=== PATIENT | female | born 1970 | race Caucasian/White ===

== ENCOUNTER 2017-03-27 19:30 | Inpatient (IN) | payer OTHER ==
[~2017-03-27] VITALS: Ht 160 cm; Wt 59.0 kg
[2017-03-27] MEDS ORDERED: Morphine Sulfate 4mg/ml Inj IVP ONE (19:45)
[2017-03-27 21:02] VITALS: BP 125/61
[2017-03-27 21:02] LABS: APPEARANCE,URINE SLIGHTLY CLOUDY; KETONES,URINE NEGATIVE (NEGATIVE); LEUKOCYTE ESTERASE ,URINE 3+ (NEGATIVE); NITRITE,URINE NEGATIVE (NEGATIVE); PH,URINE 5 (4.5-8.0); PROTEIN,URINE NEGATIVE (NEGATIVE); UROBILINOGEN,URINE NORMAL MG/DL (0.0-1.0)
[2017-03-27 21:21] LABS: BACTERIA,URINE MANY /HPF; SQUAMOUS EPITHELIAL CELL,UR OCCASIONAL /LPF (NONE/OCC); WBC,URINE 20-30 /HPF (0 - 2)
[2017-03-27 21:52] LABS: BASOPHILS % (AUTO) 0.5 % (0.0-2.0); EOSINOPHILS % (AUTO) 0.2 % (0.0-3.0); LYMPHOCYTES % (AUTO) 13.1 % (20.0-45.0); MEAN CORPUSCULAR VOLUME 97 FL (80-99); MEAN PLATELET VOLUME 6.2 FL (6.5-10.1); MONOCYTES % (AUTO) 7.2 % (1.0-10.0); NEUTROPHILS % (AUTO) 79.1 % (45.0-75.0); PLATELET COUNT 230 K/UL (150-450); RED BLOOD COUNT 4.64 M/UL (4.20-5.40); RED CELL DISTRIBUTION WIDTH 11.2 % (11.6-14.8); WHITE BLOOD COUNT 14.5 K/UL (4.8-10.8)
[2017-03-27] MEDS ORDERED: Hydromorphone 0.5mg/0.5ml inj IVP ONE (22:15)
[2017-03-27 22:22] LABS: ALANINE AMINOTRANSFERASE 13 U/L (12-78); ALBUMIN/GLOBULIN RATIO 0.8 (1.0-2.7); ANION GAP 10 (5-15); ASPARTATE AMINO TRANSFERASE 12 U/L (15-37); CALCIUM 8.8 MG/DL (8.5-10.1); CARBON DIOXIDE 24 MMOL/L (21-32); CHLORIDE 102 MMOL/L (98-107); CREATININE 0.7 MG/DL (0.55-1.30); GLOMERULAR FILTRATION RATE > 60 mL/min (>60); LIPASE 64 U/L (73-393); POTASSIUM 3.3 MMOL/L (3.5-5.1); SODIUM 136 MMOL/L (136-145)
[2017-03-27 23:10] VITALS: BP 129/70
--- NOTE | 2017-03-27 23:42 | Emergency Room Report ---
History of Present Illness General Chief Complaint: Abdominal Pain Source: Patient, EMS Present Illness HPI 46-year-old female presents ED with lower abdominal pain with vomiting and diarrhea x2 days. Patient states she has history of diverticulitis. Initially noted blood in her stool but denies any blood at this time. States pain is sharp, 8/10, nonradiating. Denies fevers or chills. Denies chest pain shortness of breath. Denies recent antibiotic use. Patient states she feels weak. No aggravating relieving factors. Denies any other associated symptoms Allergies: Coded Allergies: No Known Allergies (Unverified , 03/27/17) Patient History Past Medical History: other - diverticulitis Past Surgical History: none Pertinent Family History: none Social History: Denies: smoking, alcohol use, drug use Last Menstrual Period: NA Now: No Immunizations: UTD Reviewed Nursing Documentation: PMH: Agreed, PSxH: Agreed Review of Systems All Other Systems: negative except mentioned in HPI Physical Exam Vital Signs Date Time Temp Pulse Resp B/P (MAP) Pulse Ox O2 Delivery O2 Flow Rate FiO2 03/27/17 19:25 98.4 107 18 132/84 99 Room Air Sp02 EP Interpretation: reviewed, normal General Appearance: no apparent distress, alert, GCS 15, non-toxic Head: normocephalic, atraumatic Eyes: bilateral eye normal inspection, bilateral eye PERRL ENT: hearing grossly normal, normal pharynx, no angioedema, normal voice Neck: full range of motion, supple/symm/no masses Respiratory: chest non-tender, lungs clear, normal breath sounds, speaking full sentences Cardiovascular #1: regular rate, rhythm, no edema Cardiovascular #2: 2+ carotid (R), 2+ carotid (L), 2+ radial (R), 2+ radial (L) , 2+ dorsalis pedis (R), 2+ dorsalis pedis (L) Gastrointestinal: normal bowel sounds, soft, non-distended, no guarding, no rebound, tenderness Rectal: deferred Genitourinary: normal inspection, no CVA tenderness Musculoskeletal: back normal, gait/station normal, normal range of motion, non- tender Neurologic: alert, oriented x3, responsive, motor strength/tone normal, sensory intact, speech normal Psychiatric: judgement/insight normal, memory normal, mood/affect normal, no suicidal/homicidal ideation Reflexes: 3+ bicep (R), 3+ bicep (L), 3+ tricep (R), 3+ tricep (L), 3+ knee (R) , 3+ knee (L) Skin: normal color, no rash, warm/dry, well hydrated Lymphatic: no adenopathy Medical Decision Making Diagnostic Impression: Primary Impression: Acute colitis Additional Impression: UTI (urinary tract infection) Qualified Codes: N39.0 - Urinary tract infection, site not specified ER Course Hospital Course 46-year-old female presents to ED with abd pain, diarrhea. 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 After initial history and physical I ordered labs, IV fluids, UA, pain medication and CT scan Labs - noted leukocytosis, Hb/Hct stable. electrolytes ok. UA shows + bacteria CT abdomen and pelvis - colitis patient feels weak, dehydrated. Abx given Case discussed with Dr. Friedman and he agreed to accept the patient to his service for further care and support I feel this is a highly complex case requiring extensive working including EKG/ Rhythm strip, Xray/CT/US, Blood/urine lab work, repeat exams while in ED, and administration of strong opiates/narcotics for pain control, admission to hospital or close patient follow up. Diagnosis - colitis, UTI Patient admitted to floor in serious condition Labs Test 03/27/17 20:35 03/27/17 21:25 Urine Color Pale yellow Urine Appearance Slightly cloudy Urine pH 5 (4.5-8.0) Urine Specific [place] 1.015 (1.005-1.035) Urine Protein Negative (NEGATIVE) Urine Glucose (UA) Negative (NEGATIVE) Urine Ketones Negative (NEGATIVE) Urine Occult Blood 3+ (NEGATIVE) Urine Nitrite Negative (NEGATIVE) Urine Bilirubin Negative (NEGATIVE) Urine Urobilinogen Normal MG/DL (0.0-1.0) Urine Leukocyte Esterase 3+ (NEGATIVE) Urine RBC 5-10 /HPF (0 - 2) Urine WBC 20-30 /HPF (0 - 2) Urine Squamous Epithelial Cells Occasional /LPF Urine Bacteria Many /HPF (NONE) Urine HCG, Qualitative Negative White Blood Count 14.5 K/UL (4.8-10.8) Red Blood Count 4.64 M/UL (4.20-5.40) Hemoglobin 13.9 G/DL (12.0-16.0) Hematocrit 44.8 % (37.0-47.0) Mean Corpuscular Volume 97 FL (80-99) Mean Corpuscular Hemoglobin 30.0 PG (27.0-31.0) Mean Corpuscular Hemoglobin Concent 31.0 G/DL (32.0-36.0) Red Cell Distribution Width 11.2 % (11.6-14.8) Platelet Count 230 K/UL (150-450) Mean Platelet Volume 6.2 FL (6.5-10.1) Neutrophils (%) (Auto) 79.1 % (45.0-75.0) Lymphocytes (%) (Auto) 13.1 % (20.0-45.0) Monocytes (%) (Auto) 7.2 % (1.0-10.0) Eosinophils (%) (Auto) 0.2 % (0.0-3.0) Basophils (%) (Auto) 0.5 % (0.0-2.0) Sodium Level 136 MMOL/L (136-145) Potassium Level 3.3 MMOL/L (3.5-5.1) Chloride Level 102 MMOL/L (98-107) Carbon Dioxide Level 24 MMOL/L (21-32) Anion Gap 10 (5-15) Blood Urea Nitrogen 8 mg/dL (7-18) Creatinine 0.7 MG/DL (0.55-1.30) Estimat Glomerular Filtration Rate > 60 mL/min (>60) Glucose Level 97 MG/DL (74-106) Calcium Level 8.8 MG/DL (8.5-10.1) Total Bilirubin 0.2 MG/DL (0.2-1.0) Aspartate Amino Transf (AST/SGOT) 12 U/L (15-37) Alanine Aminotransferase (ALT/SGPT) 13 U/L (12-78) Alkaline Phosphatase 61 U/L (46-116) Total Protein 7.0 G/DL (6.4-8.2) Albumin 3.1 G/DL (3.4-5.0) Globulin 3.9 g/dL Albumin/Globulin Ratio 0.8 (1.0-2.7) Lipase 64 U/L (73-393) CT/MRI/US Diagnostic Results CT/MRI/US Diagnostic Results : Imaging Test Ordered: CT A/P Impression colitis Last Vital Signs Date Time Temp Pulse Resp B/P (MAP) Pulse Ox O2 Delivery O2 Flow Rate FiO2 03/27/17 21:02 98.4 15 125/61 96 Room Air 03/27/17 19:25 107 Status: improved Disposition: ADMITTED INPATIENT Condition: Serious Referrals: NOT CHOSEN IPA/,REFERRING (PCP) CLEMENTINA MONREAL M.D. Mar 27, 2017 23:42
[2017-03-27] MEDS ORDERED: Miralax 17gm pkt ORAL PRN (23:45)
[2017-03-27] MEDS ORDERED: Mylanta II UD 30ml ORAL PRN (23:45)
[2017-03-27] MEDS ORDERED: Nitroglycerin Subl 0.4mg tab SL PRN (23:45)
[2017-03-28] MEDS ORDERED: Morphine Sulfate 2mg/ml Inj IVP ONE (02:00)
[2017-03-28] MEDS ORDERED: GABAPENTIN300 MG ORAL (02:51)
[2017-03-28] MEDS ORDERED: LYRICA75 M1 ORAL (02:51)
[2017-03-28] MEDS: D5 1/2NS 1,000 ML IV SCH ×3 (03:31→16:14)
[2017-03-28] MEDS: Morphine Sulfate 2mg/ml Inj IVP PRN ×5 (03:36→22:15)
[2017-03-28 04:00] VITALS: BP_SYST 113; BP_SYST 123; BP_DIAS 68; BP_DIAS 74
[2017-03-28] MEDS ORDERED: Zosyn 3.375gm inj ONE (05:19)
[2017-03-28] MEDS: Piperacillin/Tazobactam 3.375 GM in NS 110 ML IVPB SCH ×2 (05:50→14:29)
[2017-03-28 08:15] VITALS: BP 149/86
[2017-03-28 08:28] LABS: BASOPHILS % (AUTO) 0.4 % (0.0-2.0); EOSINOPHILS % (AUTO) 0.6 % (0.0-3.0); LYMPHOCYTES % (AUTO) 23.6 % (20.0-45.0); MEAN CORPUSCULAR HEMOGLOBIN 32.9 PG (27.0-31.0); MEAN CORPUSCULAR HGB CONC 34.5 G/DL (32.0-36.0); MEAN CORPUSCULAR VOLUME 95 FL (80-99); MEAN PLATELET VOLUME 7.3 FL (6.5-10.1); MONOCYTES % (AUTO) 10.7 % (1.0-10.0); NEUTROPHILS % (AUTO) 64.7 % (45.0-75.0); PLATELET COUNT 241 K/UL (150-450); RED BLOOD COUNT 4.33 M/UL (4.20-5.40); RED CELL DISTRIBUTION WIDTH 11.2 % (11.6-14.8); WHITE BLOOD COUNT 12.5 K/UL (4.8-10.8)
[2017-03-28] MEDS: Heparin 5000 units/ml inj SUBQ SCH ×2 (08:36→21:22)
[2017-03-28] MEDS: Pantoprazole Inj IVP SCH (08:36)
--- NOTE | 2017-03-28 09:06 | Diagnostic Imaging Report ---
Clinical Indication: Abdominal pain Technique: No oral contrast utilized, per emergency room physician request IV administration nonionic contrast. Venous phase spiral acquisition obtained through the abdomen and pelvis. Multiplanar reconstructions were generated. Total dose length product 550 mGycm. CTDIvol(s) 11 mGy. Dose reduction achieved using automated exposure control Comparison: None Findings: Some fluid is seen in the distal rectum as well as elsewhere within the colon. No evidence of diverticulosis or diverticulitis. The appendix is normal. Somewhat fluid-filled nondilated small bowel loops are seen within the pelvis. There is slight inflammation of the pericolonic fat surrounding the splenic flexure. The distal esophagus, stomach, duodenum are unremarkable. There is equivocal trace free fluid in the pelvis. No free intraperitoneal air is evident.. The gallbladder, bile ducts, liver, spleen, adrenals, kidneys are all unremarkable. Uterus is not visualized, suspect surgically absent. No pelvic mass or adenopathy. No retroperitoneal or mesenteric mass or adenopathy. Included lung bases demonstrate some dependent atelectasis on the left. The bones are unremarkable Impression: Some fluid in the distal small bowel and colon could indicate mild colitis/enteritis changes. Slight inflammation in the pericolonic fat adjacent to the splenic flexure possibly related to such. Equivocal trace free pelvic fluid, most likely physiologic No other acute abnormality Absent uterus, probably postsurgical Left basilar pulmonary atelectatic changes This agrees with the preliminary interpretation provided overnight by [facility] teleradiology service. The CT scanner at [facility] is accredited by the [employer] and the scans are performed using protocols designed to limit radiation exposure to as low as reasonably achievable to attain images of sufficient resolution adequate for diagnostic evaluation.
[2017-03-28 09:36] LABS: ALANINE AMINOTRANSFERASE 13 U/L (12-78); ALBUMIN/GLOBULIN RATIO 0.8 (1.0-2.7); AMYLASE 23 U/L (25-115); ANION GAP 8 (5-15); ASPARTATE AMINO TRANSFERASE 10 U/L (15-37); CALCIUM 8.3 MG/DL (8.5-10.1); CARBON DIOXIDE 27 MMOL/L (21-32); CHLORIDE 105 MMOL/L (98-107); CREATININE 0.8 MG/DL (0.55-1.30); GLOMERULAR FILTRATION RATE > 60 mL/min (>60); LIPASE 58 U/L (73-393); POTASSIUM 2.8 MMOL/L (3.5-5.1); SODIUM 140 MMOL/L (136-145); TOTAL PROTEIN 6.7 G/DL (6.4-8.2)
[2017-03-28 11:51] VITALS: BP 132/78
[2017-03-28] MEDS ORDERED: D5 1/2NS w/KCl 20mEq 1,000 ML IV SCH (14:00)
[2017-03-28] MEDS ORDERED: KCl 10% 40mEq/30ml liquid NG ONE (15:00)
[2017-03-28 15:28] VITALS: BP 118/81
--- NOTE | 2017-03-28 15:55 | History and Physical ---
History of Present Illness General Date patient seen: Mar 28, 2017 Reason for Hospitalization: Abdominal Pain Present Illness HPI 46-year-old female presented to ED with lower abdominal pain with vomiting and diarrhea x2 days. Patient states she has history of diverticulitis. Initially noted blood in her stool but denies any blood at this time. States pain is sharp, 8/10, nonradiating. Denies fevers or chills. Denies chest pain shortness of breath. Denies recent antibiotic use. Patient states she feels weak. No aggravating relieving factors. Denies any other associated symptoms Allergies: Coded Allergies: No Known Allergies (Unverified , 03/27/17) Medication History Scheduled Gabapentin* (Gabapentin*), 300 MG ORAL TID, (Reported) Pregabalin* (Lyrica*), 75 MG ORAL BID, (Reported) Patient History Healthcare decision maker Resuscitation status Full Code Advanced Directive on File Past Medical/Surgical History Past Medical/Surgical History: (1) Diverticulitis Review of Systems Constitutional: Reports: malaise, weakness All Other Systems: negative except mentioned in HPI Physical Exam General Appearance: WD/WN Lines, tubes and drains: peripheral, central line HEENT: normocephalic, atraumatic Neck: non-tender, normal alignment Respiratory/Chest: chest wall non-tender, lungs clear Cardiovascular/Chest: normal peripheral pulses, regularly irregular Abdomen: normal bowel sounds Genitourinary/Rectal: normal genital exam Extremities: normal range of motion Skin Exam: normal pigmentation Last 24 Hour Vital Signs Date Time Temp Pulse Resp B/P (MAP) Pulse Ox O2 Delivery O2 Flow Rate FiO2 03/28/17 15:28 97.9 88 19 118/81 95 Room Air 03/28/17 11:51 97.8 93 18 132/78 97 Room Air 03/28/17 08:15 99.0 97 20 149/86 97 Room Air 03/28/17 04:00 97.9 83 18 113/68 96 Room Air 03/28/17 03:00 90 17 116/61 97 03/27/17 23:10 98.1 92 14 129/70 96 Room Air 03/27/17 21:02 98.4 15 125/61 96 Room Air 03/27/17 19:25 98.4 107 18 132/84 99 Room Air Intake and Output 03/28/17 03/29/17 19:00 07:00 Intake Total 532.5 ml Balance 532.5 ml IV Total 532.5 ml # Bowel Movements 1 Laboratory Tests Test 03/27/17 20:35 03/27/17 21:25 03/28/17 06:45 Urine Color Pale yellow Urine Appearance Slightly cloudy Urine pH 5 (4.5-8.0) Urine Specific [place] 1.015 (1.005-1.035) Urine Protein Negative (NEGATIVE) Urine Glucose (UA) Negative (NEGATIVE) Urine Ketones Negative (NEGATIVE) Urine Occult Blood 3+ (NEGATIVE) H Urine Nitrite Negative (NEGATIVE) Urine Bilirubin Negative (NEGATIVE) Urine Urobilinogen Normal MG/DL (0.0-1.0) Urine Leukocyte Esterase 3+ (NEGATIVE) H Urine RBC 5-10 /HPF (0 - 2) H Urine WBC 20-30 /HPF (0 - 2) H Urine Squamous Epithelial Cells Occasional /LPF Urine Bacteria Many /HPF (NONE) H Urine HCG, Qualitative Negative White Blood Count 14.5 K/UL (4.8-10.8) H 12.5 K/UL (4.8-10.8) H Red Blood Count 4.64 M/UL (4.20-5.40) 4.33 M/UL (4.20-5.40) Hemoglobin 13.9 G/DL (12.0-16.0) 14.3 G/DL (12.0-16.0) Hematocrit 44.8 % (37.0-47.0) 41.3 % (37.0-47.0) Mean Corpuscular Volume 97 FL (80-99) 95 FL (80-99) Mean Corpuscular Hemoglobin 30.0 PG (27.0-31.0) 32.9 PG (27.0-31.0) H Mean Corpuscular Hemoglobin Concent 31.0 G/DL (32.0-36.0) L 34.5 G/DL (32.0-36.0) Red Cell Distribution Width 11.2 % (11.6-14.8) L 11.2 % (11.6-14.8) L Platelet Count 230 K/UL (150-450) 241 K/UL (150-450) Mean Platelet Volume 6.2 FL (6.5-10.1) L 7.3 FL (6.5-10.1) Neutrophils (%) (Auto) 79.1 % (45.0-75.0) H 64.7 % (45.0-75.0) Lymphocytes (%) (Auto) 13.1 % (20.0-45.0) L 23.6 % (20.0-45.0) Monocytes (%) (Auto) 7.2 % (1.0-10.0) 10.7 % (1.0-10.0) H Eosinophils (%) (Auto) 0.2 % (0.0-3.0) 0.6 % (0.0-3.0) Basophils (%) (Auto) 0.5 % (0.0-2.0) 0.4 % (0.0-2.0) Sodium Level 136 MMOL/L (136-145) 140 MMOL/L (136-145) Potassium Level 3.3 MMOL/L (3.5-5.1) L 2.8 MMOL/L (3.5-5.1) L Chloride Level 102 MMOL/L (98-107) 105 MMOL/L (98-107) Carbon Dioxide Level 24 MMOL/L (21-32) 27 MMOL/L (21-32) Anion Gap 10 (5-15) 8 (5-15) Blood Urea Nitrogen 8 mg/dL (7-18) 4 mg/dL (7-18) L Creatinine 0.7 MG/DL (0.55-1.30) 0.8 MG/DL (0.55-1.30) Estimat Glomerular Filtration Rate > 60 mL/min (>60) > 60 mL/min (>60) Glucose Level 97 MG/DL (74-106) 86 MG/DL (74-106) Calcium Level 8.8 MG/DL (8.5-10.1) 8.3 MG/DL (8.5-10.1) L Total Bilirubin 0.2 MG/DL (0.2-1.0) 0.2 MG/DL (0.2-1.0) Aspartate Amino Transf (AST/SGOT) 12 U/L (15-37) L 10 U/L (15-37) L Alanine Aminotransferase (ALT/SGPT) 13 U/L (12-78) 13 U/L (12-78) Alkaline Phosphatase 61 U/L (46-116) 56 U/L (46-116) Total Protein 7.0 G/DL (6.4-8.2) 6.7 G/DL (6.4-8.2) Albumin 3.1 G/DL (3.4-5.0) L 3.0 G/DL (3.4-5.0) L Globulin 3.9 g/dL 3.7 g/dL Albumin/Globulin Ratio 0.8 (1.0-2.7) L 0.8 (1.0-2.7) L Lipase 64 U/L (73-393) L 58 U/L (73-393) L Activated Partial Thromboplast Time 28 SEC (23-33) Amylase Level 23 U/L (25-115) L Height (Feet): 5 Height (Inches): 3.00 Weight (Pounds): 130 Medications Current Medications Medications (Trade) Dose Ordered Sig/Kin Route PRN Reason Start Time Stop Time Status Last Admin Dose Admin Acetaminophen (Tylenol) 650 mg Q4H PRN ORAL fever 03/27/17 23:45 04/26/17 23:44 Al Hydroxide/Mg Hydroxide (Mylanta II) 30 ml Q6H PRN ORAL dyspepsia 03/27/17 23:45 04/26/17 23:44 Dextrose (Dextrose 50%) STAT PRN IV Hypoglycemia 03/27/17 23:45 04/26/17 23:44 Dextrose/ Electrolytes 1,000 ml @ 75 mls/hr [id number] IV 03/28/17 14:00 04/27/17 13:59 Diphenhydramine HCl (Benadryl) 25 mg Q6H PRN ORAL Itching/Pruritis 03/27/17 23:45 04/26/17 23:44 Heparin Sodium (Porcine) (Heparin 5000 units/ml) 5,000 units EVERY 12 HOURS SUBQ 03/28/17 09:00 04/27/17 08:59 Morphine Sulfate (Morphine Sulfate) 2 mg EVERY 4 HOURS PRN IVP severe Pain (Pain Scale 7-10) 03/27/17 23:45 04/03/17 23:44 03/28/17 14:07 Nitroglycerin (Ntg) 0.4 mg Q5M X 3 DOSES PRN SL Prn Chest Pain 03/27/17 23:45 04/26/17 23:44 Ondansetron HCl (Zofran) 4 mg Q6H PRN IVP Nausea & Vomiting 03/27/17 23:45 04/26/17 23:44 03/28/17 12:15 Pantoprazole (Protonix) 40 mg DAILY IVP 03/28/17 09:00 04/27/17 08:59 03/28/17 08:36 Piperacillin Sod/ Tazobactam Sod 3.375 gm/Sodium Chloride 110 ml @ 27.5 mls/hr EVERY 8 HOURS IVPB 03/28/17 06:00 04/04/17 05:59 03/28/17 14:29 Polyethylene Glycol (Miralax) 17 gm HSPRN PRN ORAL Constipation 03/27/17 23:45 04/26/17 23:44 Temazepam (Restoril) 15 mg HSPRN PRN ORAL Insomnia 03/27/17 23:45 04/03/17 23:44 03/28/17 03:34 Assessment/Plan Problem List: (1) UTI (urinary tract infection) ICD Codes: N39.0 - Urinary tract infection, site not specified SNOMED: 84345069 (2) Acute colitis ICD Codes: K52.9 - Noninfective gastroenteritis and colitis, unspecified SNOMED: 259183304 (3) Diverticulitis ICD Codes: K57.92 - Diverticulitis of intestine, part unspecified, without perforation or abscess without bleeding SNOMED: 731449218 Assessment/Plan NPO IV hydration GI/ Id evaluation f/u electrolytes IV fluids symptoamtic treatment JUSTIN PIMENTEL Mar 28, 2017 15:55
--- NOTE | 2017-03-28 15:59 | Consultation ---
History of Present Illness General Date patient seen: Mar 28, 2017 Chief Complaint: Abdominal Pain Reason for Consultation: abdominal pain x 3 days Present Illness HPI 46F presented with abdominal pain x 3 days. as per patient, she was doing okay until she noted some cramping lower abdominal pain 3 days ago. pain persistent. described as cramping pain that feels like "cement drying in her belly." dry heaves but no emesis. no fever or chills. has not had prior episode. is having diarrhea with some blood in stool. good urine out put. recently on 1 week course of steroids which completed day pain started. Allergies: Coded Allergies: No Known Allergies (Unverified , 03/27/17) Medication History Scheduled Gabapentin* (Gabapentin*), 300 MG ORAL TID, (Reported) Pregabalin* (Lyrica*), 75 MG ORAL BID, (Reported) Patient History History Provided By: Patient Healthcare decision maker Resuscitation status Full Code Advanced Directive on File Past Medical/Surgical History Past Medical/Surgical History: (1) UTI (urinary tract infection) (2) Diverticulitis (3) Acute colitis Review of Systems All Other Systems: negative except mentioned in HPI Physical Exam General Appearance: no apparent distress Lines, tubes and drains: peripheral HEENT: mucous membranes moist, PERRL Neck: normal alignment, normal inspection Respiratory/Chest: lungs clear, normal breath sounds Cardiovascular/Chest: normal peripheral pulses Abdomen: normal bowel sounds, non tender, soft, no organomegaly, no mass Extremities: normal range of motion Skin Exam: normal pigmentation Neurologic: alert, oriented x 3 Last 24 Hour Vital Signs Date Time Temp Pulse Resp B/P (MAP) Pulse Ox O2 Delivery O2 Flow Rate FiO2 03/28/17 15:28 97.9 88 19 118/81 95 Room Air 03/28/17 11:51 97.8 93 18 132/78 97 Room Air 03/28/17 08:15 99.0 97 20 149/86 97 Room Air 03/28/17 04:00 97.9 83 18 113/68 96 Room Air 03/28/17 03:00 90 17 116/61 97 03/27/17 23:10 98.1 92 14 129/70 96 Room Air 03/27/17 21:02 98.4 15 125/61 96 Room Air 03/27/17 19:25 98.4 107 18 132/84 99 Room Air Intake and Output 03/28/17 03/29/17 19:00 07:00 Intake Total 532.5 ml Balance 532.5 ml IV Total 532.5 ml # Bowel Movements 1 Laboratory Tests Test 03/27/17 20:35 03/27/17 21:25 03/28/17 06:45 Urine Color Pale yellow Urine Appearance Slightly cloudy Urine pH 5 (4.5-8.0) Urine Specific [place] 1.015 (1.005-1.035) Urine Protein Negative (NEGATIVE) Urine Glucose (UA) Negative (NEGATIVE) Urine Ketones Negative (NEGATIVE) Urine Occult Blood 3+ (NEGATIVE) H Urine Nitrite Negative (NEGATIVE) Urine Bilirubin Negative (NEGATIVE) Urine Urobilinogen Normal MG/DL (0.0-1.0) Urine Leukocyte Esterase 3+ (NEGATIVE) H Urine RBC 5-10 /HPF (0 - 2) H Urine WBC 20-30 /HPF (0 - 2) H Urine Squamous Epithelial Cells Occasional /LPF Urine Bacteria Many /HPF (NONE) H Urine HCG, Qualitative Negative White Blood Count 14.5 K/UL (4.8-10.8) H 12.5 K/UL (4.8-10.8) H Red Blood Count 4.64 M/UL (4.20-5.40) 4.33 M/UL (4.20-5.40) Hemoglobin 13.9 G/DL (12.0-16.0) 14.3 G/DL (12.0-16.0) Hematocrit 44.8 % (37.0-47.0) 41.3 % (37.0-47.0) Mean Corpuscular Volume 97 FL (80-99) 95 FL (80-99) Mean Corpuscular Hemoglobin 30.0 PG (27.0-31.0) 32.9 PG (27.0-31.0) H Mean Corpuscular Hemoglobin Concent 31.0 G/DL (32.0-36.0) L 34.5 G/DL (32.0-36.0) Red Cell Distribution Width 11.2 % (11.6-14.8) L 11.2 % (11.6-14.8) L Platelet Count 230 K/UL (150-450) 241 K/UL (150-450) Mean Platelet Volume 6.2 FL (6.5-10.1) L 7.3 FL (6.5-10.1) Neutrophils (%) (Auto) 79.1 % (45.0-75.0) H 64.7 % (45.0-75.0) Lymphocytes (%) (Auto) 13.1 % (20.0-45.0) L 23.6 % (20.0-45.0) Monocytes (%) (Auto) 7.2 % (1.0-10.0) 10.7 % (1.0-10.0) H Eosinophils (%) (Auto) 0.2 % (0.0-3.0) 0.6 % (0.0-3.0) Basophils (%) (Auto) 0.5 % (0.0-2.0) 0.4 % (0.0-2.0) Sodium Level 136 MMOL/L (136-145) 140 MMOL/L (136-145) Potassium Level 3.3 MMOL/L (3.5-5.1) L 2.8 MMOL/L (3.5-5.1) L Chloride Level 102 MMOL/L (98-107) 105 MMOL/L (98-107) Carbon Dioxide Level 24 MMOL/L (21-32) 27 MMOL/L (21-32) Anion Gap 10 (5-15) 8 (5-15) Blood Urea Nitrogen 8 mg/dL (7-18) 4 mg/dL (7-18) L Creatinine 0.7 MG/DL (0.55-1.30) 0.8 MG/DL (0.55-1.30) Estimat Glomerular Filtration Rate > 60 mL/min (>60) > 60 mL/min (>60) Glucose Level 97 MG/DL (74-106) 86 MG/DL (74-106) Calcium Level 8.8 MG/DL (8.5-10.1) 8.3 MG/DL (8.5-10.1) L Total Bilirubin 0.2 MG/DL (0.2-1.0) 0.2 MG/DL (0.2-1.0) Aspartate Amino Transf (AST/SGOT) 12 U/L (15-37) L 10 U/L (15-37) L Alanine Aminotransferase (ALT/SGPT) 13 U/L (12-78) 13 U/L (12-78) Alkaline Phosphatase 61 U/L (46-116) 56 U/L (46-116) Total Protein 7.0 G/DL (6.4-8.2) 6.7 G/DL (6.4-8.2) Albumin 3.1 G/DL (3.4-5.0) L 3.0 G/DL (3.4-5.0) L Globulin 3.9 g/dL 3.7 g/dL Albumin/Globulin Ratio 0.8 (1.0-2.7) L 0.8 (1.0-2.7) L Lipase 64 U/L (73-393) L 58 U/L (73-393) L Activated Partial Thromboplast Time 28 SEC (23-33) Amylase Level 23 U/L (25-115) L Height (Feet): 5 Height (Inches): 3.00 Weight (Pounds): 130 Medications Current Medications Medications (Trade) Dose Ordered Sig/Kin Route PRN Reason Start Time Stop Time Status Last Admin Dose Admin Acetaminophen (Tylenol) 650 mg Q4H PRN ORAL fever 03/27/17 23:45 04/26/17 23:44 Al Hydroxide/Mg Hydroxide (Mylanta II) 30 ml Q6H PRN ORAL dyspepsia 03/27/17 23:45 04/26/17 23:44 Dextrose (Dextrose 50%) STAT PRN IV Hypoglycemia 03/27/17 23:45 04/26/17 23:44 Dextrose/ Electrolytes 1,000 ml @ 75 mls/hr [id number] IV 03/28/17 14:00 04/27/17 13:59 Diphenhydramine HCl (Benadryl) 25 mg Q6H PRN ORAL Itching/Pruritis 03/27/17 23:45 04/26/17 23:44 Heparin Sodium (Porcine) (Heparin 5000 units/ml) 5,000 units EVERY 12 HOURS SUBQ 03/28/17 09:00 04/27/17 08:59 Morphine Sulfate (Morphine Sulfate) 2 mg EVERY 4 HOURS PRN IVP severe Pain (Pain Scale 7-10) 03/27/17 23:45 04/03/17 23:44 03/28/17 14:07 Nitroglycerin (Ntg) 0.4 mg Q5M X 3 DOSES PRN SL Prn Chest Pain 03/27/17 23:45 04/26/17 23:44 Ondansetron HCl (Zofran) 4 mg Q6H PRN IVP Nausea & Vomiting 03/27/17 23:45 04/26/17 23:44 03/28/17 12:15 Pantoprazole (Protonix) 40 mg DAILY IVP 03/28/17 09:00 04/27/17 08:59 03/28/17 08:36 Piperacillin Sod/ Tazobactam Sod 3.375 gm/Sodium Chloride 110 ml @ 27.5 mls/hr EVERY 8 HOURS IVPB 03/28/17 06:00 04/04/17 05:59 03/28/17 14:29 Polyethylene Glycol (Miralax) 17 gm HSPRN PRN ORAL Constipation 03/27/17 23:45 04/26/17 23:44 Temazepam (Restoril) 15 mg HSPRN PRN ORAL Insomnia 03/27/17 23:45 04/03/17 23:44 03/28/17 03:34 Assessment/Plan Problem List: (1) Acute colitis Assessment & Plan: 46F with abdominal pain x 3 days. Afebrile, HD stable, leukocytosis on admission which is improved. Exam with minimal tenderness and stable. CT reviewed and looks like enteritis. -bowel rest -Abx -will monitor exam ICD Codes: K52.9 - Noninfective gastroenteritis and colitis, unspecified SNOMED: [id number] Status: stable Clemente Contreras Mar 28, 2017 15:59
--- NOTE | 2017-03-28 16:31 | GI Initial Consult Note ---
History of Present Illness General Date patient seen: Mar 28, 2017 Time patient seen: 16:27 Reason for Hospitalization: Abdominal Pain Referring physician: JUSTIN MONTANO Reason for Consultation: abdominal pain x 3 days Present Illness HPI 46-year-old female presents ED with lower abdominal pain with vomiting and diarrhea x2 days. Patient states she has history of diverticulitis. Initially noted blood in her stool but denies any blood at this time. States pain is sharp, 8/10, nonradiating. Denies fevers or chills. Denies chest pain shortness of breath. Denies recent antibiotic use. Patient states she feels weak. No aggravating relieving factors. Denies any other associated symptoms. GI consulted for enteritis. HPI as noted above. Pt seen on floor, awake A& OxNAD with no active s/sx of N/V/D. Presents today with enteritis as shown on CT, leukocytosis, and electrolyte imbalance. Home Meds Reported Medications Gabapentin* (GABAPENTIN*) 300 Mg Capsule, 300 MG ORAL TID, CAP 03/28/17 Pregabalin* (LYRICA*) 75 Mg Capsule, 75 MG ORAL BID, CAP 03/28/17 Med list reviewed/reconciled: Yes Allergies: Coded Allergies: No Known Allergies (Unverified , 03/27/17) Patient History PMH Narrative Past Medical History: other - diverticulitis Past Surgical History: none Pertinent Family History: none Social History: Denies: smoking, alcohol use, drug use Last Menstrual Period: NA Now: No Immunizations: UTD Reviewed Nursing Documentation: PMH: Agreed, PSxH: Agreed Review of Systems All Other Systems: negative except mentioned in HPI Physical Exam Vital Signs Date Time Temp Pulse Resp B/P (MAP) Pulse Ox O2 Delivery O2 Flow Rate FiO2 03/27/17 19:25 98.4 107 18 132/84 99 Room Air Sp02 EP Interpretation: reviewed Labs Laboratory Tests Test 03/27/17 20:35 03/27/17 21:25 03/28/17 06:45 Urine Color Pale yellow Urine Appearance Slightly cloudy Urine pH 5 (4.5-8.0) Urine Specific [place] 1.015 (1.005-1.035) Urine Protein Negative (NEGATIVE) Urine Glucose (UA) Negative (NEGATIVE) Urine Ketones Negative (NEGATIVE) Urine Occult Blood 3+ (NEGATIVE) H Urine Nitrite Negative (NEGATIVE) Urine Bilirubin Negative (NEGATIVE) Urine Urobilinogen Normal MG/DL (0.0-1.0) Urine Leukocyte Esterase 3+ (NEGATIVE) H Urine RBC 5-10 /HPF (0 - 2) H Urine WBC 20-30 /HPF (0 - 2) H Urine Squamous Epithelial Cells Occasional /LPF Urine Bacteria Many /HPF (NONE) H Urine HCG, Qualitative Negative White Blood Count 14.5 K/UL (4.8-10.8) H 12.5 K/UL (4.8-10.8) H Red Blood Count 4.64 M/UL (4.20-5.40) 4.33 M/UL (4.20-5.40) Hemoglobin 13.9 G/DL (12.0-16.0) 14.3 G/DL (12.0-16.0) Hematocrit 44.8 % (37.0-47.0) 41.3 % (37.0-47.0) Mean Corpuscular Volume 97 FL (80-99) 95 FL (80-99) Mean Corpuscular Hemoglobin 30.0 PG (27.0-31.0) 32.9 PG (27.0-31.0) H Mean Corpuscular Hemoglobin Concent 31.0 G/DL (32.0-36.0) L 34.5 G/DL (32.0-36.0) Red Cell Distribution Width 11.2 % (11.6-14.8) L 11.2 % (11.6-14.8) L Platelet Count 230 K/UL (150-450) 241 K/UL (150-450) Mean Platelet Volume 6.2 FL (6.5-10.1) L 7.3 FL (6.5-10.1) Neutrophils (%) (Auto) 79.1 % (45.0-75.0) H 64.7 % (45.0-75.0) Lymphocytes (%) (Auto) 13.1 % (20.0-45.0) L 23.6 % (20.0-45.0) Monocytes (%) (Auto) 7.2 % (1.0-10.0) 10.7 % (1.0-10.0) H Eosinophils (%) (Auto) 0.2 % (0.0-3.0) 0.6 % (0.0-3.0) Basophils (%) (Auto) 0.5 % (0.0-2.0) 0.4 % (0.0-2.0) Sodium Level 136 MMOL/L (136-145) 140 MMOL/L (136-145) Potassium Level 3.3 MMOL/L (3.5-5.1) L 2.8 MMOL/L (3.5-5.1) L Chloride Level 102 MMOL/L (98-107) 105 MMOL/L (98-107) Carbon Dioxide Level 24 MMOL/L (21-32) 27 MMOL/L (21-32) Anion Gap 10 (5-15) 8 (5-15) Blood Urea Nitrogen 8 mg/dL (7-18) 4 mg/dL (7-18) L Creatinine 0.7 MG/DL (0.55-1.30) 0.8 MG/DL (0.55-1.30) Estimat Glomerular Filtration Rate > 60 mL/min (>60) > 60 mL/min (>60) Glucose Level 97 MG/DL (74-106) 86 MG/DL (74-106) Calcium Level 8.8 MG/DL (8.5-10.1) 8.3 MG/DL (8.5-10.1) L Total Bilirubin 0.2 MG/DL (0.2-1.0) 0.2 MG/DL (0.2-1.0) Aspartate Amino Transf (AST/SGOT) 12 U/L (15-37) L 10 U/L (15-37) L Alanine Aminotransferase (ALT/SGPT) 13 U/L (12-78) 13 U/L (12-78) Alkaline Phosphatase 61 U/L (46-116) 56 U/L (46-116) Total Protein 7.0 G/DL (6.4-8.2) 6.7 G/DL (6.4-8.2) Albumin 3.1 G/DL (3.4-5.0) L 3.0 G/DL (3.4-5.0) L Globulin 3.9 g/dL 3.7 g/dL Albumin/Globulin Ratio 0.8 (1.0-2.7) L 0.8 (1.0-2.7) L Lipase 64 U/L (73-393) L 58 U/L (73-393) L Activated Partial Thromboplast Time 28 SEC (23-33) Amylase Level 23 U/L (25-115) L General Appearance: well appearing, no apparent distress, alert Head: normocephalic EENT: PERRL/EOMI, normal ENT inspection Neck: supple Respiratory: normal breath sounds, no respiratory distress Cardiovascular: normal rate Gastrointestinal: normal inspection, non tender, soft Rectal: deferred Neurologic: normal inspection, alert, oriented x3, responsive Psychiatric: normal inspection, judgement/insight normal, memory normal Skin: no rash Lymphatic: normal inspection, no adenopathy Current Medications Current Medications Medications (Trade) Dose Ordered Sig/Kin Route PRN Reason Start Time Stop Time Status Last Admin Dose Admin Acetaminophen (Tylenol) 650 mg Q4H PRN ORAL fever 03/27/17 23:45 04/26/17 23:44 Al Hydroxide/Mg Hydroxide (Mylanta II) 30 ml Q6H PRN ORAL dyspepsia 03/27/17 23:45 04/26/17 23:44 Dextrose (Dextrose 50%) STAT PRN IV Hypoglycemia 03/27/17 23:45 04/26/17 23:44 Dextrose/Sodium Chloride 1,000 ml @ 75 mls/hr [id number] IV 03/28/17 16:30 04/27/17 16:29 03/28/17 16:14 Diphenhydramine HCl (Benadryl) 25 mg Q6H PRN ORAL Itching/Pruritis 03/27/17 23:45 04/26/17 23:44 Heparin Sodium (Porcine) (Heparin 5000 units/ml) 5,000 units EVERY 12 HOURS SUBQ 03/28/17 09:00 04/27/17 08:59 Morphine Sulfate (Morphine Sulfate) 2 mg EVERY 4 HOURS PRN IVP severe Pain (Pain Scale 7-10) 03/27/17 23:45 04/03/17 23:44 03/28/17 14:07 Nitroglycerin (Ntg) 0.4 mg Q5M X 3 DOSES PRN SL Prn Chest Pain 03/27/17 23:45 04/26/17 23:44 Ondansetron HCl (Zofran) 4 mg Q6H PRN IVP Nausea & Vomiting 03/27/17 23:45 04/26/17 23:44 03/28/17 12:15 Pantoprazole (Protonix) 40 mg DAILY IVP 03/28/17 09:00 04/27/17 08:59 03/28/17 08:36 Piperacillin Sod/ Tazobactam Sod 3.375 gm/Sodium Chloride 110 ml @ 27.5 mls/hr EVERY 8 HOURS IVPB 03/28/17 06:00 04/04/17 05:59 03/28/17 14:29 Polyethylene Glycol (Miralax) 17 gm HSPRN PRN ORAL Constipation 03/27/17 23:45 04/26/17 23:44 Temazepam (Restoril) 15 mg HSPRN PRN ORAL Insomnia 03/27/17 23:45 04/03/17 23:44 03/28/17 03:34 GI: Plan Problems: (1) Acute colitis (2) Dehydration (3) Enteritis Plan symptomatic treatment fu stool studies, cdiff CLD trial IV hydration + electrolyte replacement pain mgmt zofran prn abx fu labs Discussed with Dr. Bruce. Thank you for this patient referral, we will follow. Alejandrina Whittaker N.P. Mar 28, 2017 16:31
--- NOTE | 2017-03-28 17:20 | Consultation ---
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 Reported also blood in stool. Stated pain was sharp, 8/10 intensity, no radiating. +feels weak. Deneis f/c, SOB, TIERNEY, URI., UTI symptoms Of note, completed 1 weeks of steroids the day of onset of pain. Steroids for flare of chavez's palsy She referred received abx 2 week ago for divertulitis afebrile, leukocytosis to 14,now improving. Started on IV zosyn. Allergies: Coded Allergies: No Known Allergies (Unverified , 03/27/17) Medication History Scheduled Gabapentin* (Gabapentin*), 300 MG ORAL TID, (Reported) Pregabalin* (Lyrica*), 75 MG ORAL BID, (Reported) Patient History Healthcare decision maker Resuscitation status Full Code Advanced Directive on File Patient History Narrative PMhx: as above SHx:Denies: smoking, alcohol use, drug use Fhx: non contributory Review of Systems All Other Systems: negative except mentioned in HPI Physical Exam Physical Exam Narrative General Appearance: no apparent distress, alert HEENT: PERRL, no oral lesions Neck: full range of motion, supple Respiratory: chest non-tender, lungs clear, normal breath sounds Cardiovascular # regular rate, rhythm, no edema Gastrointestinal: normal bowel sounds, soft, mild diffuse TTP, no guarding, no rebound Genitourinary: normal inspection, no CVA tenderness Musculoskeletal: back normal, gait/station normal, normal range of motion, non- tender Neurologic: alert, oriented x3, no focal deficits Skin: normal color, no rash, warm/dry Last 24 Hour Vital Signs Date Time Temp Pulse Resp B/P (MAP) Pulse Ox O2 Delivery O2 Flow Rate FiO2 03/28/17 15:28 97.9 88 19 118/81 95 Room Air 03/28/17 11:51 97.8 93 18 132/78 97 Room Air 03/28/17 08:15 99.0 97 20 149/86 97 Room Air 03/28/17 04:00 97.9 83 18 113/68 96 Room Air 03/28/17 03:00 90 17 116/61 97 03/27/17 23:10 98.1 92 14 129/70 96 Room Air 03/27/17 21:02 98.4 15 125/61 96 Room Air 03/27/17 19:25 98.4 107 18 132/84 99 Room Air Intake and Output 03/28/17 03/29/17 19:00 07:00 Intake Total 532.5 ml Balance 532.5 ml IV Total 532.5 ml # Bowel Movements 1 Laboratory Tests Test 03/27/17 20:35 03/27/17 21:25 03/28/17 06:45 Urine Color Pale yellow Urine Appearance Slightly cloudy Urine pH 5 (4.5-8.0) Urine Specific [place] 1.015 (1.005-1.035) Urine Protein Negative (NEGATIVE) Urine Glucose (UA) Negative (NEGATIVE) Urine Ketones Negative (NEGATIVE) Urine Occult Blood 3+ (NEGATIVE) H Urine Nitrite Negative (NEGATIVE) Urine Bilirubin Negative (NEGATIVE) Urine Urobilinogen Normal MG/DL (0.0-1.0) Urine Leukocyte Esterase 3+ (NEGATIVE) H Urine RBC 5-10 /HPF (0 - 2) H Urine WBC 20-30 /HPF (0 - 2) H Urine Squamous Epithelial Cells Occasional /LPF Urine Bacteria Many /HPF (NONE) H Urine HCG, Qualitative Negative White Blood Count 14.5 K/UL (4.8-10.8) H 12.5 K/UL (4.8-10.8) H Red Blood Count 4.64 M/UL (4.20-5.40) 4.33 M/UL (4.20-5.40) Hemoglobin 13.9 G/DL (12.0-16.0) 14.3 G/DL (12.0-16.0) Hematocrit 44.8 % (37.0-47.0) 41.3 % (37.0-47.0) Mean Corpuscular Volume 97 FL (80-99) 95 FL (80-99) Mean Corpuscular Hemoglobin 30.0 PG (27.0-31.0) 32.9 PG (27.0-31.0) H Mean Corpuscular Hemoglobin Concent 31.0 G/DL (32.0-36.0) L 34.5 G/DL (32.0-36.0) Red Cell Distribution Width 11.2 % (11.6-14.8) L 11.2 % (11.6-14.8) L Platelet Count 230 K/UL (150-450) 241 K/UL (150-450) Mean Platelet Volume 6.2 FL (6.5-10.1) L 7.3 FL (6.5-10.1) Neutrophils (%) (Auto) 79.1 % (45.0-75.0) H 64.7 % (45.0-75.0) Lymphocytes (%) (Auto) 13.1 % (20.0-45.0) L 23.6 % (20.0-45.0) Monocytes (%) (Auto) 7.2 % (1.0-10.0) 10.7 % (1.0-10.0) H Eosinophils (%) (Auto) 0.2 % (0.0-3.0) 0.6 % (0.0-3.0) Basophils (%) (Auto) 0.5 % (0.0-2.0) 0.4 % (0.0-2.0) Sodium Level 136 MMOL/L (136-145) 140 MMOL/L (136-145) Potassium Level 3.3 MMOL/L (3.5-5.1) L 2.8 MMOL/L (3.5-5.1) L Chloride Level 102 MMOL/L (98-107) 105 MMOL/L (98-107) Carbon Dioxide Level 24 MMOL/L (21-32) 27 MMOL/L (21-32) Anion Gap 10 (5-15) 8 (5-15) Blood Urea Nitrogen 8 mg/dL (7-18) 4 mg/dL (7-18) L Creatinine 0.7 MG/DL (0.55-1.30) 0.8 MG/DL (0.55-1.30) Estimat Glomerular Filtration Rate > 60 mL/min (>60) > 60 mL/min (>60) Glucose Level 97 MG/DL (74-106) 86 MG/DL (74-106) Calcium Level 8.8 MG/DL (8.5-10.1) 8.3 MG/DL (8.5-10.1) L Total Bilirubin 0.2 MG/DL (0.2-1.0) 0.2 MG/DL (0.2-1.0) Aspartate Amino Transf (AST/SGOT) 12 U/L (15-37) L 10 U/L (15-37) L Alanine Aminotransferase (ALT/SGPT) 13 U/L (12-78) 13 U/L (12-78) Alkaline Phosphatase 61 U/L (46-116) 56 U/L (46-116) Total Protein 7.0 G/DL (6.4-8.2) 6.7 G/DL (6.4-8.2) Albumin 3.1 G/DL (3.4-5.0) L 3.0 G/DL (3.4-5.0) L Globulin 3.9 g/dL 3.7 g/dL Albumin/Globulin Ratio 0.8 (1.0-2.7) L 0.8 (1.0-2.7) L Lipase 64 U/L (73-393) L 58 U/L (73-393) L Activated Partial Thromboplast Time 28 SEC (23-33) Amylase Level 23 U/L (25-115) L reviewed Height (Feet): 5 Height (Inches): 3.00 Weight (Pounds): 130 Medications Current Medications Medications (Trade) Dose Ordered Sig/Kin Route PRN Reason Start Time Stop Time Status Last Admin Dose Admin Acetaminophen (Tylenol) 650 mg Q4H PRN ORAL fever 03/27/17 23:45 04/26/17 23:44 Al Hydroxide/Mg Hydroxide (Mylanta II) 30 ml Q6H PRN ORAL dyspepsia 03/27/17 23:45 04/26/17 23:44 Dextrose (Dextrose 50%) STAT PRN IV Hypoglycemia 03/27/17 23:45 04/26/17 23:44 Dextrose/Sodium Chloride 1,000 ml @ 75 mls/hr [id number] IV 03/28/17 16:30 04/27/17 16:29 03/28/17 16:14 Diphenhydramine HCl (Benadryl) 25 mg Q6H PRN ORAL Itching/Pruritis 03/27/17 23:45 04/26/17 23:44 Heparin Sodium (Porcine) (Heparin 5000 units/ml) 5,000 units EVERY 12 HOURS SUBQ 03/28/17 09:00 04/27/17 08:59 Morphine Sulfate (Morphine Sulfate) 2 mg EVERY 4 HOURS PRN IVP severe Pain (Pain Scale 7-10) 03/27/17 23:45 04/03/17 23:44 03/28/17 14:07 Nitroglycerin (Ntg) 0.4 mg Q5M X 3 DOSES PRN SL Prn Chest Pain 03/27/17 23:45 04/26/17 23:44 Ondansetron HCl (Zofran) 4 mg Q6H PRN IVP Nausea & Vomiting 03/27/17 23:45 04/26/17 23:44 03/28/17 12:15 Pantoprazole (Protonix) 40 mg DAILY IVP 03/28/17 09:00 04/27/17 08:59 03/28/17 08:36 Piperacillin Sod/ Tazobactam Sod 3.375 gm/Sodium Chloride 110 ml @ 27.5 mls/hr EVERY 8 HOURS IVPB 03/28/17 06:00 04/04/17 05:59 03/28/17 14:29 Polyethylene Glycol (Miralax) 17 gm HSPRN PRN ORAL Constipation 03/27/17 23:45 04/26/17 23:44 Temazepam (Restoril) 15 mg HSPRN PRN ORAL Insomnia 03/27/17 23:45 04/03/17 23:44 03/28/17 03:34 Assessment/Plan Assessment/Plan Abx: Zosyn 03/28- Cipro/Flagyl x1 03/27 Assesment: Abd pain, n/v/d> Colitis/enteritis- r/o Cdiff given recent abx use -CT abd/p: Some fluid in the distal small bowel and colon could indicate mild colitis/enteritis changes. Slight inflammation in the pericolonic fat adjacent to the splenic flexure possibly related to such. Equivocal trace free pelvic fluid, most likely physiologic. No other acute abnormality. 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 Left basilar pulmonary atelectatic changes Leukocytosis, 2ry to above- improving Hx of Diverticulosis with diverticulitis with recent episode, s/p abx course Chavez's palsy- recent flare s/p steroids Pyuria, mild- no UTI symptoms -u/a wbc 20-30, nit neg luek +3 Plan: -Swicth Zosyn to Ceftriaxone +Flagyl -f/u Stool cx, Cdiff -Cdiff contact precautions while awaiting testing -f/u cx -Monitor CBC/BMP, temperatures Thank you for this consultation. Will continue to follow along with you. Discussed with MAITE. Medina Fitzpatrick M.D. Mar 28, 2017 17:19
[2017-03-28 20:00] VITALS: BP 103/71
[2017-03-28] MEDS ORDERED: metroNIDAZOLE 500mg tab ORAL SCH (21:00)
[2017-03-28] MEDS: cefTRIAXone 1 GM in D5W 55 ML IVPB SCH (23:59)
[2017-03-29] VITALS (7 sets, daily range): BP systolic 99–149; BP diastolic 56–92
[2017-03-29] MEDS: Morphine Sulfate 2mg/ml Inj IVP PRN ×5 (04:11→21:05)
[2017-03-29] MEDS: metroNIDAZOLE 500mg tab ORAL SCH ×3 (05:47→21:05)
[2017-03-29] MEDS: D5 1/2NS 1,000 ML IV SCH ×2 (05:47→19:10)
[2017-03-29 07:12] LABS: ANION GAP 3 (5-15); BASOPHILS % (AUTO) 0.6 % (0.0-2.0); CALCIUM 8.6 MG/DL (8.5-10.1); CARBON DIOXIDE 31 MMOL/L (21-32); CHLORIDE 103 MMOL/L (98-107); CREATININE 0.7 MG/DL (0.55-1.30); EOSINOPHILS % (AUTO) 2.1 % (0.0-3.0); GLOMERULAR FILTRATION RATE > 60 mL/min (>60); LYMPHOCYTES % (AUTO) 24.6 % (20.0-45.0); MEAN CORPUSCULAR HGB CONC 34.6 G/DL (32.0-36.0); MEAN CORPUSCULAR VOLUME 95 FL (80-99); MONOCYTES % (AUTO) 10.8 % (1.0-10.0); NEUTROPHILS % (AUTO) 61.9 % (45.0-75.0); PLATELET COUNT 218 K/UL (150-450); POTASSIUM 3.1 MMOL/L (3.5-5.1); RED BLOOD COUNT 3.98 M/UL (4.20-5.40); RED CELL DISTRIBUTION WIDTH 11.4 % (11.6-14.8); SODIUM 137 MMOL/L (136-145)
[2017-03-29] MEDS: Pantoprazole Inj IVP SCH (08:28)
[2017-03-29] MEDS: Heparin 5000 units/ml inj SUBQ SCH ×2 (08:30→21:00)
--- NOTE | 2017-03-29 11:34 | General Progress Note ---
Progress Note Progress Note Surgery: patient seen and examined at bedside. no acute events. states still has abdominal discomfort that feels like "cement in her stomach". mild nausea. no emesis. +flatus. Afebrile, HD stable, exam benign. abdomen soft, non distended, minimal tenderness, no rebound, no guarding. leukocytosis improving at 11k today. electrolytes off likely enteritis. no acute surgical intervention necessary will follow. Clemente Contreras Mar 29, 2017 11:34
--- NOTE | 2017-03-29 14:55 | Infectious Diseases Prog Note ---
Assessment/Plan Assessment/Plan Abx: Zosyn 03/28 Cipro/Flagyl x1 03/27 Ceftriaxone/Flagyl 03/28- Assesment: Abd pain, n/v/d> Colitis/enteritis- suspect infectious etiology (acute bacterial process>viral), neg cdiff -CT abd/p: Some fluid in the distal small bowel and colon could indicate mild colitis/enteritis changes. Slight inflammation in the pericolonic fat adjacent to the splenic flexure possibly related to such. Equivocal trace free pelvic fluid, most likely physiologic. No other acute abnormality. 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 Left basilar pulmonary atelectatic changes -cdiff neg -stool cx pending Leukocytosis, 2ry to above- improving Hx of Diverticulosis with diverticulitis with recent episode, s/p abx course Chavez's palsy- recent flare s/p steroids Pyuria/Assymptomatic bacteriuria- no UTI symptoms -u/a wbc 20-30, nit neg luek +3; Ucx >100k GNB Plan: -Continue Ceftriaxone +Flagyl abx d #08/26-14 for collitis -upon discharge can be transitioned to PO Cipro and Flagyl -f/u Stool cx -f/u cx -Monitor CBC/BMP, temperatures Thank you for this consultation. Will continue to follow along with you. Discussed with RN. Subjective Allergies: Coded Allergies: No Known Allergies (Unverified , 03/27/17) Subjective afebrile leukocytosis improving cdiff neg refers no improvement on abd pain or diarrhea/ Objective Vital Signs Last 24 Hour Vital Signs Date Time Temp Pulse Resp B/P (MAP) Pulse Ox O2 Delivery O2 Flow Rate FiO2 03/29/17 12:00 98.2 80 16 113/92 98 03/29/17 08:11 97.9 105 19 110/70 96 Room Air 03/29/17 04:04 97.3 65 20 99/56 96 Room Air 03/29/17 00:06 98.0 79 18 108/75 96 Room Air 03/28/17 20:00 97.9 72 18 103/71 96 Room Air 03/28/17 15:28 97.9 88 19 118/81 95 Room Air Height (Feet): 5 Height (Inches): 3.00 Weight (Pounds): 130 Objective General Appearance: no apparent distress, alert HEENT: PERRL, no oral lesions Neck: full range of motion, supple Respiratory: chest non-tender, lungs clear, normal breath sounds Cardiovascular # regular rate, rhythm, no edema Gastrointestinal: normal bowel sounds, soft, mild diffuse TTP, no guarding, no rebound Genitourinary: normal inspection, no CVA tenderness Musculoskeletal: back normal, gait/station normal, normal range of motion, non- tender Neurologic: alert, oriented x3, no focal deficits Skin: normal color, no rash, warm/dry Microbiology Date/Time Source Procedure Growth Status 03/28/17 08:00 Stool Clostridium difficile Toxin Assay - Final Complete 03/27/17 20:35 Urine,Clean Catch Urine Culture - Preliminary Gram Negative Bacillus 1 Resulted Laboratory Tests Test 03/29/17 05:55 White Blood Count 11.0 K/UL (4.8-10.8) H Red Blood Count 3.98 M/UL (4.20-5.40) L Hemoglobin 13.1 G/DL (12.0-16.0) Hematocrit 37.9 % (37.0-47.0) Mean Corpuscular Volume 95 FL (80-99) Mean Corpuscular Hemoglobin 33.0 PG (27.0-31.0) H Mean Corpuscular Hemoglobin Concent 34.6 G/DL (32.0-36.0) Red Cell Distribution Width 11.4 % (11.6-14.8) L Platelet Count 218 K/UL (150-450) Mean Platelet Volume 7.0 FL (6.5-10.1) Neutrophils (%) (Auto) 61.9 % (45.0-75.0) Lymphocytes (%) (Auto) 24.6 % (20.0-45.0) Monocytes (%) (Auto) 10.8 % (1.0-10.0) H Eosinophils (%) (Auto) 2.1 % (0.0-3.0) Basophils (%) (Auto) 0.6 % (0.0-2.0) Sodium Level 137 MMOL/L (136-145) Potassium Level 3.1 MMOL/L (3.5-5.1) L Chloride Level 103 MMOL/L (98-107) Carbon Dioxide Level 31 MMOL/L (21-32) Anion Gap 3 (5-15) L Blood Urea Nitrogen 4 mg/dL (7-18) L Creatinine 0.7 MG/DL (0.55-1.30) Estimat Glomerular Filtration Rate > 60 mL/min (>60) Glucose Level 91 MG/DL (74-106) Calcium Level 8.6 MG/DL (8.5-10.1) Current Medications Medications (Trade) Dose Ordered Sig/Kin Route PRN Reason Start Time Stop Time Status Last Admin Dose Admin Acetaminophen (Tylenol) 650 mg Q4H PRN ORAL fever 03/27/17 23:45 04/26/17 23:44 03/28/17 21:29 Al Hydroxide/Mg Hydroxide (Mylanta II) 30 ml Q6H PRN ORAL dyspepsia 03/27/17 23:45 04/26/17 23:44 Ceftriaxone Sodium 1 gm/ Dextrose 55 ml @ 110 mls/hr Q24H IVPB 03/28/17 23:00 04/04/17 22:59 03/28/17 23:59 Dextrose (Dextrose 50%) STAT PRN IV Hypoglycemia 03/27/17 23:45 04/26/17 23:44 Dextrose/Sodium Chloride 1,000 ml @ 75 mls/hr [id number] IV 03/28/17 16:30 04/27/17 16:29 03/29/17 05:47 Diphenhydramine HCl (Benadryl) 25 mg Q6H PRN ORAL Itching/Pruritis 03/27/17 23:45 04/26/17 23:44 Heparin Sodium (Porcine) (Heparin 5000 units/ml) 5,000 units EVERY 12 HOURS SUBQ 03/28/17 09:00 04/27/17 08:59 03/28/17 21:22 Metronidazole (Flagyl) 500 mg Q8HR ORAL 03/29/17 06:00 04/05/17 05:59 03/29/17 14:18 Morphine Sulfate (Morphine Sulfate) 2 mg EVERY 4 HOURS PRN IVP severe Pain (Pain Scale 7-10) 03/27/17 23:45 04/03/17 23:44 03/29/17 12:23 Nitroglycerin (Ntg) 0.4 mg Q5M X 3 DOSES PRN SL Prn Chest Pain 03/27/17 23:45 04/26/17 23:44 Ondansetron HCl (Zofran) 4 mg Q6H PRN IVP Nausea & Vomiting 03/27/17 23:45 04/26/17 23:44 03/29/17 11:20 Pantoprazole (Protonix) 40 mg DAILY IVP 03/28/17 09:00 04/27/17 08:59 03/29/17 08:28 Polyethylene Glycol (Miralax) 17 gm HSPRN PRN ORAL Constipation 03/27/17 23:45 04/26/17 23:44 Temazepam (Restoril) 15 mg HSPRN PRN ORAL Insomnia 03/27/17 23:45 04/03/17 23:44 03/28/17 03:34 Medina Fitzpatrick M.D. Mar 29, 2017 14:55
--- NOTE | 2017-03-29 16:35 | Pulmonology Progress Note ---
Assessment/Plan Problems: (1) Acute colitis (2) UTI (urinary tract infection) (3) Diverticulitis Assessment/Plan wbc decreasing continue abx check wbc in am dc when more stable. Subjective ROS Limited/Unobtainable: No Constitutional: Reports: no symptoms HEENT: Repors: no symptoms Respiratory: Reports: no symptoms Allergies: Coded Allergies: No Known Allergies (Unverified , 03/27/17) Objective Last 24 Hour Vital Signs Date Time Temp Pulse Resp B/P (MAP) Pulse Ox O2 Delivery O2 Flow Rate FiO2 03/29/17 12:00 98.2 80 16 113/92 98 03/29/17 08:11 97.9 105 19 110/70 96 Room Air 03/29/17 04:04 97.3 65 20 99/56 96 Room Air 03/29/17 00:06 98.0 79 18 108/75 96 Room Air 03/28/17 20:00 97.9 72 18 103/71 96 Room Air Intake and Output 03/29/17 03/30/17 19:00 07:00 Intake Total 585 ml Output Total 250 ml Balance 335 ml Intake Oral 360 ml IV Total 225 ml Output Urine Total 250 ml General Appearance: WD/WN HEENT: normocephalic, atraumatic Respiratory/Chest: chest wall non-tender, lungs clear Cardiovascular: normal peripheral pulses, normal rate Abdomen: normal bowel sounds, soft, non tender Genitourinary: normal external genitalia Extremities: no cyanosis Skin: no rash, no ulcers 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, no motor/sensory deficits Lymphatic: no neck adenopathy Musculoskeletal: normal muscle bulk, no effusion Microbiology Date/Time Source Procedure Growth Status 03/28/17 08:00 Stool Clostridium difficile Toxin Assay - Final Complete 03/27/17 20:35 Urine,Clean Catch Urine Culture - Preliminary Gram Negative Bacillus 1 Resulted Laboratory Tests 03/29/17 05:55: White Blood Count 11.0H, Red Blood Count 3.98L, Hemoglobin 13.1, Hematocrit 37.9 , Mean Corpuscular Volume 95, Mean Corpuscular Hemoglobin 33.0H, Mean Corpuscular Hemoglobin Concent 34.6, Red Cell Distribution Width 11.4L, Platelet Count 218, Mean Platelet Volume 7.0, Neutrophils (%) (Auto) 61.9, Lymphocytes (%) (Auto) 24.6, Monocytes (%) (Auto) 10.8H, Eosinophils (%) (Auto) 2.1, Basophils (%) (Auto) 0.6, Sodium Level 137, Potassium Level 3.1L, Chloride Level 103, Carbon Dioxide Level 31, Anion Gap 3L, Blood Urea Nitrogen 4L, Creatinine 0.7, Estimat Glomerular Filtration Rate > 60, Glucose Level 91, Calcium Level 8.6 Current Medications Medications (Trade) Dose Ordered Sig/Kin Route PRN Reason Start Time Stop Time Status Last Admin Dose Admin Acetaminophen (Tylenol) 650 mg Q4H PRN ORAL fever 03/27/17 23:45 04/26/17 23:44 03/28/17 21:29 Al Hydroxide/Mg Hydroxide (Mylanta II) 30 ml Q6H PRN ORAL dyspepsia 03/27/17 23:45 04/26/17 23:44 Ceftriaxone Sodium 1 gm/ Dextrose 55 ml @ 110 mls/hr Q24H IVPB 03/28/17 23:00 04/04/17 22:59 03/28/17 23:59 Dextrose (Dextrose 50%) STAT PRN IV Hypoglycemia 03/27/17 23:45 04/26/17 23:44 Dextrose/Sodium Chloride 1,000 ml @ 75 mls/hr [id number] IV 03/28/17 16:30 04/27/17 16:29 03/29/17 05:47 Diphenhydramine HCl (Benadryl) 25 mg Q6H PRN ORAL Itching/Pruritis 03/27/17 23:45 04/26/17 23:44 Fluconazole (Diflucan) 200 mg ONCE ONCE ORAL 03/29/17 17:00 03/29/17 17:01 Heparin Sodium (Porcine) (Heparin 5000 units/ml) 5,000 units EVERY 12 HOURS SUBQ 03/28/17 09:00 04/27/17 08:59 03/28/17 21:22 Metronidazole (Flagyl) 500 mg Q8HR ORAL 03/29/17 06:00 04/05/17 05:59 03/29/17 14:18 Morphine Sulfate (Morphine Sulfate) 2 mg EVERY 4 HOURS PRN IVP severe Pain (Pain Scale 7-10) 03/27/17 23:45 04/03/17 23:44 03/29/17 12:23 Nitroglycerin (Ntg) 0.4 mg Q5M X 3 DOSES PRN SL Prn Chest Pain 03/27/17 23:45 04/26/17 23:44 Ondansetron HCl (Zofran) 4 mg Q6H PRN IVP Nausea & Vomiting 03/27/17 23:45 04/26/17 23:44 03/29/17 11:20 Pantoprazole (Protonix) 40 mg DAILY IVP 03/28/17 09:00 04/27/17 08:59 03/29/17 08:28 Polyethylene Glycol (Miralax) 17 gm HSPRN PRN ORAL Constipation 03/27/17 23:45 04/26/17 23:44 Potassium Chloride (KCl 10% 40mEq Oral solution) 40 meq ONCE ONCE NG 03/29/17 17:00 03/29/17 17:01 Temazepam (Restoril) 15 mg HSPRN PRN ORAL Insomnia 03/27/17 23:45 04/03/17 23:44 03/28/17 03:34 JUSTIN PIMENTEL Mar 29, 2017 16:35
[2017-03-29] MEDS ORDERED: KCl 10% 40mEq/30ml liquid NG ONE (17:00)
[2017-03-29] MEDS ORDERED: Fluconazole 100mg tab ORAL ONE (17:00)
--- NOTE | 2017-03-29 17:01 | GI Progress Note ---
Assessment/Plan Problems: (1) Acute colitis ICD Codes: K52.9 - Noninfective gastroenteritis and colitis, unspecified SNOMED: 041215347 (2) Enteritis ICD Codes: K52.9 - Noninfective gastroenteritis and colitis, unspecified SNOMED: 57540103 (3) Dehydration ICD Codes: E86.0 - Dehydration SNOMED: 03494420 Status: progressing Status Narrative Discussed with Dr. Bruce. Assessment/Plan cdiff negative symptomatic treatment fu stool studies soft regular diet IV hydration + electrolyte replacement pain mgmt zofran prn abx Imodium prn if diarrhea persists fu labs, CRP Subjective Subjective hungry Objective Last 24 Hour Vital Signs Date Time Temp Pulse Resp B/P (MAP) Pulse Ox O2 Delivery O2 Flow Rate FiO2 03/29/17 16:00 98.4 68 16 116/73 89 03/29/17 12:00 98.2 80 16 113/92 98 03/29/17 08:11 97.9 105 19 110/70 96 Room Air 03/29/17 04:04 97.3 65 20 99/56 96 Room Air 03/29/17 00:06 98.0 79 18 108/75 96 Room Air 03/28/17 20:00 97.9 72 18 103/71 96 Room Air Intake and Output 03/29/17 03/30/17 19:00 07:00 Intake Total 585 ml Output Total 250 ml Balance 335 ml Intake Oral 360 ml IV Total 225 ml Output Urine Total 250 ml Laboratory Tests Test 03/29/17 05:55 White Blood Count 11.0 K/UL (4.8-10.8) H Red Blood Count 3.98 M/UL (4.20-5.40) L Hemoglobin 13.1 G/DL (12.0-16.0) Hematocrit 37.9 % (37.0-47.0) Mean Corpuscular Volume 95 FL (80-99) Mean Corpuscular Hemoglobin 33.0 PG (27.0-31.0) H Mean Corpuscular Hemoglobin Concent 34.6 G/DL (32.0-36.0) Red Cell Distribution Width 11.4 % (11.6-14.8) L Platelet Count 218 K/UL (150-450) Mean Platelet Volume 7.0 FL (6.5-10.1) Neutrophils (%) (Auto) 61.9 % (45.0-75.0) Lymphocytes (%) (Auto) 24.6 % (20.0-45.0) Monocytes (%) (Auto) 10.8 % (1.0-10.0) H Eosinophils (%) (Auto) 2.1 % (0.0-3.0) Basophils (%) (Auto) 0.6 % (0.0-2.0) Sodium Level 137 MMOL/L (136-145) Potassium Level 3.1 MMOL/L (3.5-5.1) L Chloride Level 103 MMOL/L (98-107) Carbon Dioxide Level 31 MMOL/L (21-32) Anion Gap 3 (5-15) L Blood Urea Nitrogen 4 mg/dL (7-18) L Creatinine 0.7 MG/DL (0.55-1.30) Estimat Glomerular Filtration Rate > 60 mL/min (>60) Glucose Level 91 MG/DL (74-106) Calcium Level 8.6 MG/DL (8.5-10.1) Height (Feet): 5 Height (Inches): 3.00 Weight (Pounds): 130 General Appearance: no apparent distress, alert Cardiovascular: normal rate Respiratory/Chest: normal breath sounds, no respiratory distress Abdominal Exam: normal bowel sounds, non tender, soft Extremities: normal range of motion Alejandrina Whittaker N.P. Mar 29, 2017 17:01
[2017-03-29] MEDS: cefTRIAXone 1 GM in D5W 55 ML IVPB SCH (23:17)
[2017-03-30] MEDS: Morphine Sulfate 2mg/ml Inj IVP PRN ×6 (01:15→22:04)
[2017-03-30 04:00] VITALS: BP 110/66
[2017-03-30] MEDS: metroNIDAZOLE 500mg tab ORAL SCH ×3 (06:04→21:08)
[2017-03-30 07:36] LABS: BASOPHILS % (AUTO) 0.6 % (0.0-2.0); EOSINOPHILS % (AUTO) 2.3 % (0.0-3.0); LYMPHOCYTES % (AUTO) 29.3 % (20.0-45.0); MEAN CORPUSCULAR HGB CONC 33.6 G/DL (32.0-36.0); MEAN CORPUSCULAR VOLUME 95 FL (80-99); MEAN PLATELET VOLUME 6.6 FL (6.5-10.1); MONOCYTES % (AUTO) 14.2 % (1.0-10.0); NEUTROPHILS % (AUTO) 53.6 % (45.0-75.0); PLATELET COUNT 218 K/UL (150-450); RED BLOOD COUNT 3.77 M/UL (4.20-5.40); RED CELL DISTRIBUTION WIDTH 11.2 % (11.6-14.8); WHITE BLOOD COUNT 10.6 K/UL (4.8-10.8)
[2017-03-30 07:58] LABS: ALANINE AMINOTRANSFERASE 10 U/L (12-78); ALBUMIN/GLOBULIN RATIO 0.7 (1.0-2.7); ANION GAP 3 (5-15); ASPARTATE AMINO TRANSFERASE 12 U/L (15-37); CALCIUM 8.3 MG/DL (8.5-10.1); CARBON DIOXIDE 29 MMOL/L (21-32); CHLORIDE 103 MMOL/L (98-107); CREATININE 0.7 MG/DL (0.55-1.30); GLOMERULAR FILTRATION RATE > 60 mL/min (>60); MAGNESIUM 1.8 MG/DL (1.8-2.4); PHOSPHORUS 3.2 MG/DL (2.5-4.9); POTASSIUM 3.2 MMOL/L (3.5-5.1); SODIUM 135 MMOL/L (136-145)
[2017-03-30 07:59] LABS: CRP QUANT 12.3 mg/dL (0.00-0.90)
[2017-03-30 08:00] VITALS: BP 108/68
[2017-03-30] MEDS ORDERED: Analgesic Balm 15gm TOPIC PRN (09:30)
[2017-03-30] MEDS: Heparin 5000 units/ml inj SUBQ SCH ×2 (09:34→21:00)
[2017-03-30] MEDS: D5 1/2NS 1,000 ML IV SCH (09:40)
[2017-03-30] MEDS: Pantoprazole Inj IVP SCH (09:40)
[2017-03-30 09:47] LABS: ERYTHROCYTE SEDIMENTATION RATE 47 MM/HR (0-20)
[2017-03-30 12:00] VITALS: BP 108/68
--- NOTE | 2017-03-30 12:11 | GI Progress Note ---
Assessment/Plan Problems: (1) Acute colitis ICD Codes: K52.9 - Noninfective gastroenteritis and colitis, unspecified SNOMED: 861568368 (2) Enteritis ICD Codes: K52.9 - Noninfective gastroenteritis and colitis, unspecified SNOMED: 48035106 (3) Dehydration ICD Codes: E86.0 - Dehydration SNOMED: 69370301 Status: stable Status Narrative Discussed with Dr. Bruce. Assessment/Plan cdiff negative CRP elevation ESR elevation s/p EGD/colonoscopy in 2015 >> will obtain records ok for DC per GI standpoint >> fu as outpatient, will need BT for HP given history of ? symptomatic treatment soft regular diet, tolerating pain mgmt zofran prn abx per ID Imodium prn if diarrhea persists Subjective Subjective tolerating diet Objective Last 24 Hour Vital Signs Date Time Temp Pulse Resp B/P (MAP) Pulse Ox O2 Delivery O2 Flow Rate FiO2 03/30/17 08:00 98.4 72 16 108/68 96 03/30/17 04:00 97.9 74 18 110/66 99 Room Air 03/29/17 23:56 97.9 77 18 119/73 96 Room Air 03/29/17 20:18 98.4 85 18 149/70 97 Room Air 03/29/17 16:00 98.4 68 16 116/73 89 Laboratory Tests Test 03/30/17 06:05 White Blood Count 10.6 K/UL (4.8-10.8) Red Blood Count 3.77 M/UL (4.20-5.40) L Hemoglobin 12.1 G/DL (12.0-16.0) Hematocrit 36.0 % (37.0-47.0) L Mean Corpuscular Volume 95 FL (80-99) Mean Corpuscular Hemoglobin 32.0 PG (27.0-31.0) H Mean Corpuscular Hemoglobin Concent 33.6 G/DL (32.0-36.0) Red Cell Distribution Width 11.2 % (11.6-14.8) L Platelet Count 218 K/UL (150-450) Mean Platelet Volume 6.6 FL (6.5-10.1) Neutrophils (%) (Auto) 53.6 % (45.0-75.0) Lymphocytes (%) (Auto) 29.3 % (20.0-45.0) Monocytes (%) (Auto) 14.2 % (1.0-10.0) H Eosinophils (%) (Auto) 2.3 % (0.0-3.0) Basophils (%) (Auto) 0.6 % (0.0-2.0) Erythrocyte Sedimentation Rate 47 MM/HR (0-20) H Sodium Level 135 MMOL/L (136-145) L Potassium Level 3.2 MMOL/L (3.5-5.1) L Chloride Level 103 MMOL/L (98-107) Carbon Dioxide Level 29 MMOL/L (21-32) Anion Gap 3 (5-15) L Blood Urea Nitrogen 3 mg/dL (7-18) L Creatinine 0.7 MG/DL (0.55-1.30) Estimat Glomerular Filtration Rate > 60 mL/min (>60) Glucose Level 91 MG/DL (74-106) Calcium Level 8.3 MG/DL (8.5-10.1) L Phosphorus Level 3.2 MG/DL (2.5-4.9) Magnesium Level 1.8 MG/DL (1.8-2.4) Total Bilirubin 0.2 MG/DL (0.2-1.0) Aspartate Amino Transf (AST/SGOT) 12 U/L (15-37) L Alanine Aminotransferase (ALT/SGPT) 10 U/L (12-78) L Alkaline Phosphatase 56 U/L (46-116) C-Reactive Protein, Quantitative 12.3 mg/dL (0.00-0.90) H Total Protein 6.0 G/DL (6.4-8.2) L Albumin 2.5 G/DL (3.4-5.0) L Globulin 3.5 g/dL Albumin/Globulin Ratio 0.7 (1.0-2.7) L Height (Feet): 5 Height (Inches): 3.00 Weight (Pounds): 130 General Appearance: no apparent distress, alert Cardiovascular: normal rate Respiratory/Chest: normal breath sounds, no respiratory distress Abdominal Exam: normal bowel sounds, non tender, soft Extremities: normal range of motion Alejandrina Whittaker N.Ralph Mar 30, 2017 12:11
--- NOTE | 2017-03-30 12:51 | General Progress Note ---
Progress Note Progress Note Surgery: doing well. no acute events. exam stable. afebrile, HD stable, labs improved no acute surgical intervention. likely enteritis, possible subacute diverticulitis will follow Clemente Contreras Mar 30, 2017 12:51
--- NOTE | 2017-03-30 13:48 | Pulmonology Progress Note ---
Assessment/Plan Assessment/Plan ASSESSMENT acute colitis acute enteritis acute abdominal pain 2 to above hypokalemia dehydration asymptomatic bacteriuria [place] palsy with recent flare up hx of diverticulosis with recent diverticulitis, s/p Rx PLAN OF CARE MS floor CT A/P with mild colitis, enteritis pain management GI and surgery follows per surgery no acute surgical interventions necessary, likely enteritis abx ID follows stool C dif negative Urine + GNB, asymptomatic bacteriuria as per ID bowel regimen DVT GI prophylaxis a/emetic prn Imodium prn dc plan ID to clarify abx per dc case discussed and evaluated by supervising physician Subjective Allergies: Coded Allergies: No Known Allergies (Unverified , 03/27/17) Subjective leukocytosis resolved afebrile still intermittent abdominal pain, diffused + nausea, no vomiting, tolerated diet + diarrhea, no blood K-3.2 Objective Last 24 Hour Vital Signs Date Time Temp Pulse Resp B/P (MAP) Pulse Ox O2 Delivery O2 Flow Rate FiO2 03/30/17 12:00 98.0 76 18 108/68 96 Room Air 03/30/17 08:00 98.4 72 16 108/68 96 03/30/17 04:00 97.9 74 18 110/66 99 Room Air 03/29/17 23:56 97.9 77 18 119/73 96 Room Air 03/29/17 20:18 98.4 85 18 149/70 97 Room Air 03/29/17 16:00 98.4 68 16 116/73 89 HEENT: normocephalic, atraumatic, anicteric, mucous membranes moist, PERRL Respiratory/Chest: chest wall non-tender, lungs clear, normal breath sounds, no respiratory distress, no accessory muscle use Cardiovascular: normal peripheral pulses, normal rate, regular rhythm, no JVD Abdomen: normal bowel sounds - soft, non distended, difused tenderness on palpation, no rebound, no guarding Extremities: no edema, pedal pulses normal Skin: no rash 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, no motor/sensory deficits, alert, oriented x 3, responsive Musculoskeletal: normal muscle bulk Microbiology Date/Time Source Procedure Growth Status 03/28/17 08:00 Stool Clostridium difficile Toxin Assay - Final Complete 03/27/17 20:35 Urine,Clean Catch Urine Culture - Final Enterobacter Aerogenes Complete Laboratory Tests 03/30/17 06:05: White Blood Count 10.6, Red Blood Count 3.77L, Hemoglobin 12.1, Hematocrit 36.0L , Mean Corpuscular Volume 95, Mean Corpuscular Hemoglobin 32.0H, Mean Corpuscular Hemoglobin Concent 33.6, Red Cell Distribution Width 11.2L, Platelet Count 218, Mean Platelet Volume 6.6, Neutrophils (%) (Auto) 53.6, Lymphocytes (%) (Auto) 29.3, Monocytes (%) (Auto) 14.2H, Eosinophils (%) (Auto) 2.3, Basophils (%) (Auto) 0.6, Erythrocyte Sedimentation Rate 47H, Sodium Level 135L, Potassium Level 3.2L, Chloride Level 103, Carbon Dioxide Level 29, Anion Gap 3L, Blood Urea Nitrogen 3L, Creatinine 0.7, Estimat Glomerular Filtration Rate > 60, Glucose Level 91, Calcium Level 8.3L, Phosphorus Level 3.2, Magnesium Level 1.8, Total Bilirubin 0.2, Aspartate Amino Transf (AST/SGOT) 12L , Alanine Aminotransferase (ALT/SGPT) 10L, Alkaline Phosphatase 56, C-Reactive Protein, Quantitative 12.3H, Total Protein 6.0L, Albumin 2.5L, Globulin 3.5, Albumin/Globulin Ratio 0.7L Current Medications Medications (Trade) Dose Ordered Sig/Kin Route PRN Reason Start Time Stop Time Status Last Admin Dose Admin Acetaminophen (Tylenol) 650 mg Q4H PRN ORAL fever 03/27/17 23:45 04/26/17 23:44 03/28/17 21:29 Al Hydroxide/Mg Hydroxide (Mylanta II) 30 ml Q6H PRN ORAL dyspepsia 03/27/17 23:45 04/26/17 23:44 Ceftriaxone Sodium 1 gm/ Dextrose 55 ml @ 110 mls/hr Q24H IVPB 03/28/17 23:00 04/04/17 22:59 03/29/17 23:17 Dextrose (Dextrose 50%) STAT PRN IV Hypoglycemia 03/27/17 23:45 04/26/17 23:44 Diphenhydramine HCl (Benadryl) 25 mg Q6H PRN ORAL Itching/Pruritis 03/27/17 23:45 04/26/17 23:44 Heparin Sodium (Porcine) (Heparin 5000 units/ml) 5,000 units EVERY 12 HOURS SUBQ 03/28/17 09:00 04/27/17 08:59 03/28/17 21:22 Menthol/Methyl Salicylate (Bengay) 1 applic FOUR TIMES A DAY PRN TOPIC For Pain 03/30/17 09:30 04/29/17 09:29 Metronidazole (Flagyl) 500 mg Q8HR ORAL 03/29/17 06:00 04/05/17 05:59 03/30/17 06:04 Morphine Sulfate (Morphine Sulfate) 2 mg EVERY 4 HOURS PRN IVP severe Pain (Pain Scale 7-10) 03/27/17 23:45 04/03/17 23:44 03/30/17 10:05 Nitroglycerin (Ntg) 0.4 mg Q5M X 3 DOSES PRN SL Prn Chest Pain 03/27/17 23:45 04/26/17 23:44 Ondansetron HCl (Zofran) 4 mg Q6H PRN IVP Nausea & Vomiting 03/27/17 23:45 04/26/17 23:44 03/29/17 11:20 Pantoprazole (Protonix) 40 mg DAILY IVP 03/28/17 09:00 04/27/17 08:59 03/30/17 09:40 Polyethylene Glycol (Miralax) 17 gm HSPRN PRN ORAL Constipation 03/27/17 23:45 04/26/17 23:44 Temazepam (Restoril) 15 mg HSPRN PRN ORAL Insomnia 03/27/17 23:45 04/03/17 23:44 03/28/17 03:34 Jesús HerreraCristina girard NP Mar 30, 2017 13:48
[2017-03-30 16:00] VITALS: BP 119/81
--- NOTE | 2017-03-30 19:05 | Infectious Diseases Prog Note ---
Assessment/Plan Assessment/Plan Abx: Zosyn 03/28 Cipro/Flagyl x1 03/27 Ceftriaxone/Flagyl 03/28- Assesment: Abd pain, n/v/d> Colitis/enteritis- ?infectious etiology (acute bacterial process>viral), neg cdiff; r/o non infectious causes-slow response on abx; querry if underlying non infectious process -CT abd/p: Some fluid in the distal small bowel and colon could indicate mild colitis/enteritis changes. Slight inflammation in the pericolonic fat adjacent to the splenic flexure possibly related to such. Equivocal trace free pelvic fluid, most likely physiologic. No other acute abnormality. 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 Left basilar pulmonary atelectatic changes -cdiff neg -stool cx pending Leukocytosis, 2ry to above- resolved Hx of Diverticulosis with diverticulitis with recent episode, s/p abx course [place]'s palsy- recent flare s/p steroids Pyuria/Assymptomatic bacteriuria- no UTI symptoms -u/a wbc 20-30, nit neg luek +3; Ucx >100k E. aerogenes (S. Ceftriaxone, Levo/ cipro) Plan: -Continue Ceftriaxone +Flagyl abx d #09/26-14 for collitis -upon discharge can be transitioned to PO Cipro and Flagyl -check o+p -f/u Stool cx -f/u cx -Monitor CBC/BMP, temperatures -GI f/u as outpatient Thank you for this consultation. Will continue to follow along with you. Discussed with RN. Subjective Allergies: Coded Allergies: No Known Allergies (Unverified , 03/27/17) Subjective afebrile leukocytosis resolved awaiting stool cx no longer blood in stool but continue to have 4-5 x diarrheal episodes. Objective Vital Signs Last 24 Hour Vital Signs Date Time Temp Pulse Resp B/P (MAP) Pulse Ox O2 Delivery O2 Flow Rate FiO2 03/30/17 16:00 98.1 79 16 119/81 100 03/30/17 12:00 98.0 76 18 108/68 96 Room Air 03/30/17 08:00 98.4 72 16 108/68 96 03/30/17 04:00 97.9 74 18 110/66 99 Room Air 03/29/17 23:56 97.9 77 18 119/73 96 Room Air 03/29/17 20:18 98.4 85 18 149/70 97 Room Air Height (Feet): 5 Height (Inches): 3.00 Weight (Pounds): 130 Objective General Appearance: no apparent distress, alert HEENT: PERRL, no oral lesions Neck: full range of motion, supple Respiratory: chest non-tender, lungs clear, normal breath sounds Cardiovascular # regular rate, rhythm, no edema Gastrointestinal: normal bowel sounds, soft, mild diffuse TTP, no guarding, no rebound Genitourinary: normal inspection, no CVA tenderness Musculoskeletal: back normal, gait/station normal, normal range of motion, non- tender Neurologic: alert, oriented x3, no focal deficits Skin: normal color, no rash, warm/dry Microbiology Date/Time Source Procedure Growth Status 03/28/17 08:00 Stool Clostridium difficile Toxin Assay - Final Complete 03/27/17 20:35 Urine,Clean Catch Urine Culture - Final Enterobacter Aerogenes Complete Laboratory Tests Test 03/30/17 06:05 White Blood Count 10.6 K/UL (4.8-10.8) Red Blood Count 3.77 M/UL (4.20-5.40) L Hemoglobin 12.1 G/DL (12.0-16.0) Hematocrit 36.0 % (37.0-47.0) L Mean Corpuscular Volume 95 FL (80-99) Mean Corpuscular Hemoglobin 32.0 PG (27.0-31.0) H Mean Corpuscular Hemoglobin Concent 33.6 G/DL (32.0-36.0) Red Cell Distribution Width 11.2 % (11.6-14.8) L Platelet Count 218 K/UL (150-450) Mean Platelet Volume 6.6 FL (6.5-10.1) Neutrophils (%) (Auto) 53.6 % (45.0-75.0) Lymphocytes (%) (Auto) 29.3 % (20.0-45.0) Monocytes (%) (Auto) 14.2 % (1.0-10.0) H Eosinophils (%) (Auto) 2.3 % (0.0-3.0) Basophils (%) (Auto) 0.6 % (0.0-2.0) Erythrocyte Sedimentation Rate 47 MM/HR (0-20) H Sodium Level 135 MMOL/L (136-145) L Potassium Level 3.2 MMOL/L (3.5-5.1) L Chloride Level 103 MMOL/L (98-107) Carbon Dioxide Level 29 MMOL/L (21-32) Anion Gap 3 (5-15) L Blood Urea Nitrogen 3 mg/dL (7-18) L Creatinine 0.7 MG/DL (0.55-1.30) Estimat Glomerular Filtration Rate > 60 mL/min (>60) Glucose Level 91 MG/DL (74-106) Calcium Level 8.3 MG/DL (8.5-10.1) L Phosphorus Level 3.2 MG/DL (2.5-4.9) Magnesium Level 1.8 MG/DL (1.8-2.4) Total Bilirubin 0.2 MG/DL (0.2-1.0) Aspartate Amino Transf (AST/SGOT) 12 U/L (15-37) L Alanine Aminotransferase (ALT/SGPT) 10 U/L (12-78) L Alkaline Phosphatase 56 U/L (46-116) C-Reactive Protein, Quantitative 12.3 mg/dL (0.00-0.90) H Total Protein 6.0 G/DL (6.4-8.2) L Albumin 2.5 G/DL (3.4-5.0) L Globulin 3.5 g/dL Albumin/Globulin Ratio 0.7 (1.0-2.7) L Current Medications Medications (Trade) Dose Ordered Sig/Kin Route PRN Reason Start Time Stop Time Status Last Admin Dose Admin Acetaminophen (Tylenol) 650 mg Q4H PRN ORAL fever 03/27/17 23:45 04/26/17 23:44 03/28/17 21:29 Al Hydroxide/Mg Hydroxide (Mylanta II) 30 ml Q6H PRN ORAL dyspepsia 03/27/17 23:45 04/26/17 23:44 Ceftriaxone Sodium 1 gm/ Dextrose 55 ml @ 110 mls/hr Q24H IVPB 03/28/17 23:00 04/04/17 22:59 03/29/17 23:17 Dextrose (Dextrose 50%) STAT PRN IV Hypoglycemia 03/27/17 23:45 04/26/17 23:44 Diphenhydramine HCl (Benadryl) 25 mg Q6H PRN ORAL Itching/Pruritis 03/27/17 23:45 04/26/17 23:44 Heparin Sodium (Porcine) (Heparin 5000 units/ml) 5,000 units EVERY 12 HOURS SUBQ 03/28/17 09:00 04/27/17 08:59 03/28/17 21:22 Menthol/Methyl Salicylate (Bengay) 1 applic FOUR TIMES A DAY PRN TOPIC For Pain 03/30/17 09:30 04/29/17 09:29 Metronidazole (Flagyl) 500 mg Q8HR ORAL 03/29/17 06:00 04/05/17 05:59 03/30/17 13:55 Morphine Sulfate (Morphine Sulfate) 2 mg EVERY 4 HOURS PRN IVP severe Pain (Pain Scale 7-10) 03/27/17 23:45 04/03/17 23:44 03/30/17 18:05 Nitroglycerin (Ntg) 0.4 mg Q5M X 3 DOSES PRN SL Prn Chest Pain 03/27/17 23:45 04/26/17 23:44 Ondansetron HCl (Zofran) 4 mg Q6H PRN IVP Nausea & Vomiting 03/27/17 23:45 04/26/17 23:44 03/29/17 11:20 Pantoprazole (Protonix) 40 mg DAILY IVP 03/28/17 09:00 04/27/17 08:59 03/30/17 09:40 Polyethylene Glycol (Miralax) 17 gm HSPRN PRN ORAL Constipation 03/27/17 23:45 04/26/17 23:44 Temazepam (Restoril) 15 mg HSPRN PRN ORAL Insomnia 03/27/17 23:45 04/03/17 23:44 03/28/17 03:34 Medina Fitzpatrick M.D. Mar 30, 2017 19:05
[2017-03-30 20:00] VITALS: BP 109/60
[2017-03-30] MEDS: cefTRIAXone 1 GM in D5W 55 ML IVPB SCH (21:09)
[2017-03-31] VITALS: BP 112/70
[2017-03-31] MEDS: Morphine Sulfate 2mg/ml Inj IVP PRN ×3 (03:42→12:19)
[2017-03-31 04:00] VITALS: BP 110/66
[2017-03-31] MEDS: metroNIDAZOLE 500mg tab ORAL SCH ×2 (05:11→14:00)
[2017-03-31 08:00] VITALS: BP 104/65
[2017-03-31] MEDS: Pantoprazole Inj IVP SCH (08:21)
[2017-03-31] MEDS: Heparin 5000 units/ml inj SUBQ SCH (09:00)
--- NOTE | 2017-03-31 09:02 | Pulmonology Progress Note ---
Assessment/Plan Assessment/Plan ASSESSMENT acute colitis acute enteritis abdominal pain 2 to above hypokalemia dehydration asymptomatic bacteriuria [place] palsy with recent flare up hx of diverticulosis with recent diverticulitis, s/p Rx PLAN OF CARE MS floor CT A/P with mild colitis, enteritis pain management GI and surgery follows per surgery no acute surgical interventions necessary, likely enteritis abx ID follows stool C dif negative Urine + GNB, asymptomatic bacteriuria as per ID bowel regimen DVT GI prophylaxis a/emetic prn Imodium prn dc today script for Cipro and Flagyl provided as per ID recommendations case discussed and evaluated by supervising physician Subjective Allergies: Coded Allergies: No Known Allergies (Unverified , 03/27/17) All Systems: reviewed and negative except above Subjective leukocytosis resolved afebrile still intermittent abdominal pain, diffused + nausea, no vomiting, tolerated diet Objective Last 24 Hour Vital Signs Date Time Temp Pulse Resp B/P (MAP) Pulse Ox O2 Delivery O2 Flow Rate FiO2 03/31/17 04:00 98.1 77 18 110/66 99 Room Air 03/31/17 00:00 98.0 80 18 112/70 98 Room Air 03/30/17 20:00 98.6 85 20 109/60 98 Room Air 03/30/17 16:00 98.1 79 16 119/81 100 03/30/17 12:00 98.0 76 18 108/68 96 Room Air Objective General : NAD A/A/O x 3 female HEENT: normocephalic, atraumatic, anicteric, mucous membranes moist, PERRL Respiratory/Chest: chest wall non-tender, lungs clear, normal breath sounds, no respiratory distress, no accessory muscle use Cardiovascular: normal peripheral pulses, normal rate, regular rhythm, no JVD Abdomen: normal bowel sounds - soft, non distended, difused tenderness on palpation, no rebound, no guarding Extremities: no edema, pedal pulses normal Skin: no rash 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, no motor/sensory deficits, alert, oriented x 3, responsive Musculoskeletal: normal muscle bulk Current Medications Medications (Trade) Dose Ordered Sig/Kin Route PRN Reason Start Time Stop Time Status Last Admin Dose Admin Acetaminophen (Tylenol) 650 mg Q4H PRN ORAL fever 03/27/17 23:45 04/26/17 23:44 03/28/17 21:29 Al Hydroxide/Mg Hydroxide (Mylanta II) 30 ml Q6H PRN ORAL dyspepsia 03/27/17 23:45 04/26/17 23:44 Ceftriaxone Sodium 1 gm/ Dextrose 55 ml @ 110 mls/hr Q24H IVPB 03/28/17 23:00 04/04/17 22:59 03/30/17 21:09 Dextrose (Dextrose 50%) STAT PRN IV Hypoglycemia 03/27/17 23:45 04/26/17 23:44 Diphenhydramine HCl (Benadryl) 25 mg Q6H PRN ORAL Itching/Pruritis 03/27/17 23:45 04/26/17 23:44 Heparin Sodium (Porcine) (Heparin 5000 units/ml) 5,000 units EVERY 12 HOURS SUBQ 03/28/17 09:00 04/27/17 08:59 03/28/17 21:22 Menthol/Methyl Salicylate (Bengay) 1 applic FOUR TIMES A DAY PRN TOPIC For Pain 03/30/17 09:30 04/29/17 09:29 Metronidazole (Flagyl) 500 mg Q8HR ORAL 03/29/17 06:00 04/05/17 05:59 03/31/17 05:11 Morphine Sulfate (Morphine Sulfate) 2 mg EVERY 4 HOURS PRN IVP severe Pain (Pain Scale 7-10) 03/27/17 23:45 04/03/17 23:44 03/31/17 08:21 Nitroglycerin (Ntg) 0.4 mg Q5M X 3 DOSES PRN SL Prn Chest Pain 03/27/17 23:45 04/26/17 23:44 Ondansetron HCl (Zofran) 4 mg Q6H PRN IVP Nausea & Vomiting 03/27/17 23:45 04/26/17 23:44 03/29/17 11:20 Pantoprazole (Protonix) 40 mg DAILY IVP 03/28/17 09:00 04/27/17 08:59 03/31/17 08:21 Polyethylene Glycol (Miralax) 17 gm HSPRN PRN ORAL Constipation 03/27/17 23:45 04/26/17 23:44 Temazepam (Restoril) 15 mg HSPRN PRN ORAL Insomnia 03/27/17 23:45 04/03/17 23:44 03/28/17 03:34 [facility] Mar 31, 2017 09:02
[2017-03-31 09:25] LABS: BASOPHILS % (AUTO) 0.7 % (0.0-2.0); EOSINOPHILS % (AUTO) 2.3 % (0.0-3.0); LYMPHOCYTES % (AUTO) 27.8 % (20.0-45.0); MEAN CORPUSCULAR HEMOGLOBIN 31.9 PG (27.0-31.0); MEAN CORPUSCULAR HGB CONC 33.7 G/DL (32.0-36.0); MEAN CORPUSCULAR VOLUME 95 FL (80-99); MEAN PLATELET VOLUME 6.2 FL (6.5-10.1); MONOCYTES % (AUTO) 11.1 % (1.0-10.0); NEUTROPHILS % (AUTO) 58.1 % (45.0-75.0); PLATELET COUNT 258 K/UL (150-450); RED BLOOD COUNT 4.05 M/UL (4.20-5.40); RED CELL DISTRIBUTION WIDTH 11.1 % (11.6-14.8); WHITE BLOOD COUNT 10.7 K/UL (4.8-10.8)
[2017-03-31 09:40] LABS: ANION GAP 3 (5-15); CALCIUM 8.8 MG/DL (8.5-10.1); CARBON DIOXIDE 30 MMOL/L (21-32); CHLORIDE 102 MMOL/L (98-107); CREATININE 0.7 MG/DL (0.55-1.30); GLOMERULAR FILTRATION RATE > 60 mL/min (>60); POTASSIUM 3.6 MMOL/L (3.5-5.1); SODIUM 135 MMOL/L (136-145)
[2017-03-31] MEDS ORDERED: METRONIDAZOLE500 MG ORAL (11:55)
[2017-03-31] MEDS ORDERED: CIPRO500 MG PO (11:55)
--- NOTE | 2017-03-31 12:24 | General Progress Note ---
Progress Note Progress Note Surgery: no acute events. doing very well. improved. no n/v/f/c. +flatus +BM. comfortable. good oral intake. ambulatory afebrile, HD stable, labs okay. likely enteritis; resolving no surgical intervention necessary okay to d/c from surgical standpoint will follow peripherally Clemente Contreras Mar 31, 2017 12:24
--- NOTE | 2017-03-31 14:58 | GI Progress Note ---
Assessment/Plan Problems: (1) Acute colitis ICD Codes: K52.9 - Noninfective gastroenteritis and colitis, unspecified SNOMED: 359294648 (2) Enteritis ICD Codes: K52.9 - Noninfective gastroenteritis and colitis, unspecified SNOMED: 98615149 (3) Dehydration ICD Codes: E86.0 - Dehydration SNOMED: 22449445 Status: stable Status Narrative Discussed with Dr. Bruce. Assessment/Plan cdiff negative CRP elevation ESR elevation s/p EGD/colonoscopy in 2015 >> will obtain records ok for DC per GI standpoint >> fu as outpatient, will need BT for HP given history of ? symptomatic treatment soft regular diet, tolerating pain mgmt zofran prn abx per ID Imodium prn if diarrhea persists Subjective Subjective tolerating diet Objective Last 24 Hour Vital Signs Date Time Temp Pulse Resp B/P (MAP) Pulse Ox O2 Delivery O2 Flow Rate FiO2 03/31/17 08:51 98.1 03/31/17 08:00 98.1 84 19 104/65 98 Room Air 03/31/17 04:00 98.1 77 18 110/66 99 Room Air 03/31/17 00:00 98.0 80 18 112/70 98 Room Air 03/30/17 20:00 98.6 85 20 109/60 98 Room Air 03/30/17 16:00 98.1 79 16 119/81 100 Laboratory Tests Test 03/31/17 03:50 03/31/17 08:07 Stool Cyclospora Smear Pending Giardia Antigen Pending Isospora Exam Pending Microsporidia Identification Pending White Blood Count 10.7 K/UL (4.8-10.8) Red Blood Count 4.05 M/UL (4.20-5.40) L Hemoglobin 12.9 G/DL (12.0-16.0) Hematocrit 38.4 % (37.0-47.0) Mean Corpuscular Volume 95 FL (80-99) Mean Corpuscular Hemoglobin 31.9 PG (27.0-31.0) H Mean Corpuscular Hemoglobin Concent 33.7 G/DL (32.0-36.0) Red Cell Distribution Width 11.1 % (11.6-14.8) L Platelet Count 258 K/UL (150-450) Mean Platelet Volume 6.2 FL (6.5-10.1) L Neutrophils (%) (Auto) 58.1 % (45.0-75.0) Lymphocytes (%) (Auto) 27.8 % (20.0-45.0) Monocytes (%) (Auto) 11.1 % (1.0-10.0) H Eosinophils (%) (Auto) 2.3 % (0.0-3.0) Basophils (%) (Auto) 0.7 % (0.0-2.0) Sodium Level 135 MMOL/L (136-145) L Potassium Level 3.6 MMOL/L (3.5-5.1) Chloride Level 102 MMOL/L (98-107) Carbon Dioxide Level 30 MMOL/L (21-32) Anion Gap 3 (5-15) L Blood Urea Nitrogen 3 mg/dL (7-18) L Creatinine 0.7 MG/DL (0.55-1.30) Estimat Glomerular Filtration Rate > 60 mL/min (>60) Glucose Level 122 MG/DL (74-106) H Calcium Level 8.8 MG/DL (8.5-10.1) HIV (1&2) Antibody Rapid Negative (NEGATIVE) Height (Feet): 5 Height (Inches): 3.00 Weight (Pounds): 130 General Appearance: no apparent distress, alert Cardiovascular: normal rate Respiratory/Chest: normal breath sounds, no respiratory distress Abdominal Exam: normal bowel sounds, non tender, soft Extremities: normal range of motion Alejandrina Whittaker N.P. Mar 31, 2017 14:58
[2017-03-31] MEDS ORDERED: ACETAMINOPHEN-1 EAC1 ORAL (15:05)
[2017-03-31] MEDS ORDERED: D5 1/2NS 1000ml IV ONE (15:29)
[2017-03-31] MEDS ORDERED: NS 275ml ONE (15:29)
[2017-03-31] MEDS ORDERED: Tubing IV Secondary IV ONE (15:29)
[2017-03-31] MEDS ORDERED: D5NS 1000ml IV ONE (15:29)
--- NOTE | 2017-04-03 10:53 | Discharge Summary ---
Discharge Summary Hospital Course Date of Admission Mar 28, 2017 at 02:18 Date of Discharge Mar 31, 2017 at 15:30 Admitting Diagnosis COLITIS HPI Makenzie Villagran is a 46 year old female who was admitted on Mar 28, 2017 at 02: 18 for Colitis Hospital Course dc summary #[id number] Discharge Medications New Medications: Ciprofloxacin* (Cipro*) 500 Mg Tablet 500 MG PO BID, #10 TAB Metronidazole* (Flagyl*) 500 Mg Tablet 500 MG ORAL THREE TIMES A DAY, #15 TAB 0 Refills Continued Medications: Acetaminophen With Codeine (T#3) (Tylenol #3 Tab*) Y Tab 1 TAB ORAL Q6HR PRN for For Pain, #20 TAB Gabapentin* (Gabapentin*) 300 Mg Capsule 300 MG ORAL TID, CAP Pregabalin* (Lyrica*) 75 Mg Capsule 75 MG ORAL BID, CAP Discharge Condition Upon Discharge: stable Discharge Disposition Patient was discharged to Home (01) Discharge Diagnoses: Discharge Instructions Discharge Instructions Special Instructions I have been assigned to complete a D/C Summary on this account. I was not involved in the patient management Cristina Espinosa NP ([facility]) Apr 03, 2017 10:53
--- NOTE | 2017-04-04 03:00 | Discharge Summary 2 SIG ---
DATE OF ADMISSION: 03/28/2017 DATE OF DISCHARGE: 03/31/2017 REASON FOR ADMISSION: 46-year-old female, presented to emergency department with lower abdominal pain, vomiting, and diarrhea for two days. The patient has a known history of diverticulitis. The patient was evaluated in the emergency room, found to have acute colitis, urinary tract infection, and was admitted for further management. HOSPITAL COURSE: GI, Surgery and ID consults were requested. The patient was admitted to Med/Surg floor. CT of the abdomen and pelvis revealed some fluid in the distal small bowel and colon, probably indicative of mild colitis/enteritis changes. No other acute abnormality. The patient was started on empiric antibiotics. ID followed. Stool for C. difficile was negative. Urine culture grew Gram-negative bacteria and showed Enterobacter, however according to ID, the patient had asymptomatic bacteriuria since she had no urinary symptoms. No urinary frequency. No dysuria. No suprapubic discomfort. Patient was on empiric antibiotics for acute colitis. Bowel regimen instituted. DVT and GI prophylaxes provided. GI and Surgery closely followed. Imodium provided as needed when the patient developed diarrhea. Diarrhea was likely secondary to medications. Per GI, the patient likely had enteritis, which was resolving. No surgical intervention was necessary at that time. Surgeon cleared the patient for discharge. Per GI, the patient had an EGD and colonoscopy in 2016. GI recommended symptomatic treatment. Diet was slowly started and advanced as tolerated. Pain management provided. Antiemetic provided as needed. Follow up as outpatient with GI specialist. Initial leukocytosis resolved. Hemoglobin and hematocrit stable. Electrolytes were stable after replacement, initially with hypokalemia. The patient was stable for discharge. FINAL DIAGNOSES: 1. Acute colitis. 2. Acute enteritis. 3. Abdominal pain secondary to colitis /enteritis 4. Hypokalemia, resolved. 5. Dehydration, resolved. 6. Asymptomatic bacteriuria. 7. Chavez's palsy with recent flare-up. 8. History of diverticulosis with recent diverticulitis, status post treatment. DISCHARGE MEDICATIONS: Prescription provided for Cipro and Flagyl, as per ID recommendation. DISCHARGE INSTRUCTIONS: The patient was discharged home. FOLLOWUP: Follow up with the primary medical doctor and ID. Neymar Friedman M.D. Cristina Espinosa N.P. ([facility]) DR: Yovanny JOB#: [id number] CC: [id number]
== END 2017-03-31 15:30 | disposition home or self-care (01) | DRG 392 ==
LOC: EDBD 19:30 → EMR 23:32 → EDBEDREQ 03-28 02:12 → 4E 03-28 02:18
DX: K52.9 Noninfective gastroenteritis and colitis, unspecified (principal); E86.0 Dehydration; D72.829 Elevated white blood cell count, unspecified; E87.6 Hypokalemia; R82.71 Bacteriuria; G51.0 Bell's palsy
CPT/HCPCS: 36415; 74177; 80048; 80053; 81003; 81025; 82150; 83690; 83735; 84100; 85025; 85651; 85730; 86140; 86703; 87015; 87045; 87086; 87181; 87207; 87324; 87329; 99285; J2405